=== PATIENT | male | born 1950 | race Caucasian/White ===

== ENCOUNTER 2023-09-15 15:13 | Outpatient (RCR) | payer MEDICARE, OTHER, SELFPAY | END 2023-09-15 23:59 | disposition home or self-care (01) | LOC: RPT 15:13 | PROVIDERS: ATTENDING PHYSICIAN Physical Medicine & Rehabilitation; FAMILY PHYSICIAN Family Medicine | DX: I69.318 Other symptoms and signs involving cognitive functions following cerebral infarction (principal); R41.4 Neurologic neglect syndrome; F90.9 Attention-deficit hyperactivity disorder, unspecified type; I69.354 Hemiplegia and hemiparesis following cerebral infarction affecting left non-dominant side; I69.398 Other sequelae of cerebral infarction; R26.89 Other abnormalities of gait and mobility; I69.328 Other speech and language deficits following cerebral infarction | CPT/HCPCS: 97110; 97112; 97129; 97130; 97530; 97535 ==

== ENCOUNTER → 2023-10-01 12:16 | Outpatient (REF) | payer MEDICARE, OTHER, SELFPAY | LOC: RAD 12:16 | PROVIDERS: ATTENDING PHYSICIAN Surgery Vascular Surgery; FAMILY PHYSICIAN Family Medicine | DX: I65.23 Occlusion and stenosis of bilateral carotid arteries (principal); I71.43 Infrarenal abdominal aortic aneurysm, without rupture | CPT/HCPCS: 74174; 93880; Q9967 ==

== ENCOUNTER → 2023-10-06 09:52 | Outpatient (REF) | payer MEDICARE, OTHER, SELFPAY ==
[2023-10-06 11:08] LABS: % Basophils 0.7 % (0-2); % Eosinophils 3.7 % (0-6); % Immature Granulocytes 0.2 % (0-0.5); % Monocytes 9.6 % (1.7-9.3); % Neutrophils 55.8 % (42.2-75.2); Absolute Eosinophils 0.2 10^3/uL (0-0.7); Absolute Lymphocytes 1.7 10^3/uL (1.2-3.4); Absolute Monocytes 0.6 10^3/uL (0.1-0.6); Absolute Neutrophils 3.2 10^3/uL (1.4-6.5); Hematocrit 46.2 % (39.0-52.0); Hemoglobin 15.3 g/dL (13.0-18.0); Mean Corp Hgb Conc. 33.1 g/dL (33.0-37.0); Mean Corpuscular Hgb 31.5 pg (27.0-31.0); Mean Corpuscular Volume 95.1 fL (80.0-94.0); Mean Platelet Volume 10.4 fL (7.4-10.4); Nucleated Red Blood Cells % 0 % (-); Platelet Count 163 10^3/uL (130-400); Red Blood Cell Count 4.86 10^6/uL (4.70-6.10); White Blood Cell Count 5.7 10^3/uL (4.8-10.8)
[2023-10-06 11:27] LABS: ALT (SGPT) 32 U/L (0-50); AST (SGOT) 30 U/L (17-59); Albumin 3.9 g/dl (3.5-5.0); Alkaline Phosphatase 69 U/L (38-126); Blood Urea Nitrogen 12 mg/dl (9-20); Calcium 8.9 mg/dl (8.4-10.2); Carbon Dioxide 30 mmol/L (22-30); Chloride 104 mmol/L (98-107); Glucose 93 mg/dl (70-99); HDL Cholesterol 29 mg/dl; LDL Cholesterol, Calculated 41 mg/dl; Potassium 4.6 mmol/L (3.5-5.1); Sodium 139 mmol/L (135-145); Total Bilirubin 0.7 mg/dl (0.2-1.3); Total Cholesterol 81 mg/dl (50-199); Total Protein 6.4 g/dl (6.3-8.2); Triglyceride 59 mg/dl (10-149); Very Low Density Lipoprotein 11 mg/dl (0-30); eGFR > 60.00
[2023-10-06 12:51] LABS: Glycohemoglobin (HgbA1c) 6.2 % (4.0-5.6)
== END ==
LOC: REG 09:52
PROVIDERS: ATTENDING PHYSICIAN Family Medicine
DX: R73.01 Impaired fasting glucose (principal); E78.5 Hyperlipidemia, unspecified; I10 Essential (primary) hypertension
CPT/HCPCS: 36415; 80053; 80061; 83036; 85025

== ENCOUNTER 2023-10-15 08:23 | Outpatient (RCR) | payer MEDICARE, OTHER, SELFPAY | END 2023-10-16 10:22 | disposition home or self-care (01) | LOC: RPT 08:23 | PROVIDERS: ATTENDING PHYSICIAN Physical Medicine & Rehabilitation; FAMILY PHYSICIAN Family Medicine | DX: I69.318 Other symptoms and signs involving cognitive functions following cerebral infarction (principal); I69.328 Other speech and language deficits following cerebral infarction; Z73.6 Limitation of activities due to disability; I69.354 Hemiplegia and hemiparesis following cerebral infarction affecting left non-dominant side; I69.398 Other sequelae of cerebral infarction; R26.89 Other abnormalities of gait and mobility; R41.4 Neurologic neglect syndrome | CPT/HCPCS: 97110; 97129; 97130; 97530; 97535 ==

== ENCOUNTER 2023-11-07 07:14 | Inpatient (IN) | payer MEDICARE, OTHER, SELFPAY ==
[2023-11-03 09:22] VITALS: BMI 29.4
[2023-11-03 10:10] LABS: % Basophils 0.7 % (0-2); % Eosinophils 2.8 % (0-6); % Lymphocytes 25.7 % (20.5-51.1); % Monocytes 9.1 % (1.7-9.3); % Neutrophils 60.7 % (42.2-75.2); Absolute Basophils 0.1 10^3/uL (0-0.2); Absolute Eosinophils 0.2 10^3/uL (0-0.7); Absolute Immature Granulocytes 0.1 10^3/uL (0-0.05); Absolute Lymphocytes 1.7 10^3/uL (1.2-3.4); Absolute Monocytes 0.6 10^3/uL (0.1-0.6); Absolute Neutrophils 4.1 10^3/uL (1.4-6.5); Hemoglobin 15.6 g/dL (13.0-18.0); Mean Corp Hgb Conc. 33.9 g/dL (33.0-37.0); Mean Corpuscular Hgb 31.9 pg (27.0-31.0); Mean Corpuscular Volume 94.1 fL (80.0-94.0); Mean Platelet Volume 10.9 fL (7.4-10.4); Nucleated Red Blood Cells % 0 % (-); Platelet Count 141 10^3/uL (130-400); Red Blood Cell Count 4.89 10^6/uL (4.70-6.10); Red Cell Dist. Width 13.3 % (11.5-14.5); White Blood Cell Count 6.7 10^3/uL (4.8-10.8)
[2023-11-03 10:16] LABS: INR 1.21; PT 15.1 Sec (11.4-14.6)
[2023-11-03 10:17] LABS: APTT 32.7 Sec (23.4-35.0)
[2023-11-03 10:50] LABS: Blood Urea Nitrogen 13 mg/dl (9-20); Calcium 8.8 mg/dl (8.4-10.2); Carbon Dioxide 28 mmol/L (22-30); Chloride 106 mmol/L (98-107); Estimated Creatinine Clearance 60 ml/min; Glucose 101 mg/dl (70-99); Potassium 4.2 mmol/L (3.5-5.1); Sodium 141 mmol/L (135-145); eGFR > 60.00
[2023-11-07] VITALS (11 sets, daily range): BP systolic 107–158; BP diastolic 61–87; PULSE 61; BMI 29.1
[2023-11-07] MEDS: BACTROBAN NASAL 1 GRAM NASAL (07:49)
[2023-11-07] MEDS: PERIDEX 0.12% ORAL RINSE 15 ML PO (07:49)
[2023-11-07] MEDS: NSS 500 IV (07:49)
--- NOTE | 2023-11-07 08:29 | W.SUR.PREOP ---
Pre-Operative Surgical Note
-
I have examined this patient prior to the performance of the scheduled procedure.
The patient's condition is unchanged from the time of the current History and
Physical and the patient is able to undergo the scheduled procedure.
[2023-11-07 09:35] LABS: ACT-LR - POC 360 Seconds (116-155)
--- NOTE | 2023-11-07 10:55 | W.IMMPOSTOP ---
Surgical Immed Post Op Note
-
Primary Surgeon: Umer Peralta III, MD
Assisting Surgeon: Geremias Sen MD
Pre-op Diagnosis: Inferarenal AAA
Post-op Diagnosis: Infrarenal AAA s/p EVAR (26mm [place])
Procedure Performed: EVAR (26mm [place])
Anesthesia Type: General
Specimen / Cultures: NA
Estimated Blood Loss: 75cc
Complications: NA
Operative Findings:
Bilateral groin access was obtained. 2 pre-close devices were inserted bilaterally after dilating with a 5French sheath. An 11Fr sheath was then advanced on the left. The right side was serially dilated to accomodate a 13Fr sheath. The 26mm device
was advanced under direct fluoroscopic guidance infrarenally. After confirmational aortogram, the device crown was deployed without issue. Polymer sealant was then deployed, and the entire device (includingl iliac limbs) were each ballooned to
nominal pressure. Post-deployment aortogram demonstrated excellent positioning with no evidence of endoleak. An additional pro-glide pre-close was inserted into the left groin. The femoral access sites were packed with gel foam and light pressure
held on right side. Distal extremity pulses were palpable bilaterally, unchanged from preoperative condition.
[2023-11-07 11:07] LABS: Glucose - Point of Care 109 mg/dl (70-99)
--- NOTE | 2023-11-07 11:14 | CON.INTV ---
Consultation
Consultation Request
Date/Time Consultation Requested: 11/07/2023-11:30 AM
Date/Time Consultation Performed: 11/07/2023-12 noon
Requesting Provider: Dr. Peralta
Performing Provider: Dr. Duarte
Reason for Consultation: Postoperative critical care management
Medical History
-
Chief Complaint: Infrarenal AAA
History of Present Illness:
73-year-old male with multiple medical problems including hypertension, hyperlipidemia, CAD/stent, obesity, sleep apnea on CPAP who was noted to have significant infrarenal AAA and underwent EVAR-licensed massage practitioner consulted for postoperative critical care
management 11/07/2023.
Past Medical History
Past Medical History: None (Hypertension. Hyperlipidemia. PAF. GERD. CAD/stent. History of pericarditis. BPH. Umbilical hernia. Glaucoma. Shingles. Colon polyp. CATARINO on CPAP. Obesity. Liver cyst. Pancreatic lipomatosis. Diverticulosis.
History CVA. Carotid stenosis. Cervical disc disease.)
Past Surgical History: None (Tonsillectomy. Umbilical hernia repair.)
Social History
Tobacco: Former Smoker
Alcohol: None
Drug: None
Living: With Family
Occupational Exposures: No known asbestos exposure
Environmental Exposures: No known tuberculosis exposure
Family History
Family History: Other (Glaucoma. Alzheimer's. Hyperlipidemia. Prostate cancer.)
Allergies / Home Medications
Allergies
Allergy/AdvReac Type Severity Reaction Status Date / Time
No Known Allergies Allergy Verified 10/29/23 14:39
Home Medications
Medication Instructions Recorded Confirmed Last Taken Type
nitroglycerin 0.4 mg sublingual 0.4 mg sublingual [id number] PRN 03/02/19 10/29/23 Unknown Rx
tablet chest pain #25 tabs
atorvastatin 40 mg tablet 40 mg PO QPM High Cholesterol 06/01/21 11/07/23 11/06/23 19:00 History
ezetimibe 10 mg tablet 10 mg PO QPM High Cholesterol 06/01/21 11/07/23 11/06/23 19:00 History
losartan 25 mg tablet 25 mg PO DAILY Blood Pressure 06/01/21 11/07/23 11/06/23 08:00 History
pantoprazole 40 mg tablet,delayed 40 mg PO DAILY Gastrointestinal 06/04/23 11/07/23 11/06/23 08:00 History
release Issue
melatonin 10 mg tablet 10 mg PO HS PRN sleep 06/07/23 11/07/23 Unknown History
metoprolol succinate 25 mg 25 mg PO DAILY 30 days #30 tabs 06/09/23 11/07/23 11/07/23 05:00 Rx
tablet,extended release 24 hr
acetaminophen 325 mg tablet 650 mg PO Q6HPRN PRN MILD PAIN 06/19/23 11/07/23 Unknown Rx
#100 tabs
apixaban 5 mg tablet (Eliquis) 5 mg PO BID #180 tabs 06/19/23 11/07/23 11/04/23 19:00 Rx
cyanocobalamin (vitamin B-12) 1,000 mcg PO DAILY #90 tabs 06/19/23 11/07/23 11/06/23 08:00 Rx
1,000 mcg tablet
empagliflozin 10 mg tablet 10 mg PO QPM Heart Failure 90 days 06/19/23 11/07/23 11/04/23 19:00 Rx
(Jardiance) #90 tabs
docusate sodium 100 mg capsule 100 mg PO BID PRN CONSTIPATION 10/29/23 10/29/23 Unknown History
enoxaparin 100 mg/mL subcutaneous 90 mg SC DAILY 11/07/23 11/07/23 11/06/23 20:45 History
syringe (Lovenox)
Review of Systems
-
Unable to Obtain full review of systems at this time due to: Other (Per HPI)
Vitals / Labs / Diagnostic Testing
Vital Signs
Temp Pulse Resp BP Pulse Ox
97.9 F 55 18 155/85 98
11/07/23 07:20 11/07/23 07:20 11/07/23 07:20 11/07/23 07:20 11/07/23 07:20
Microbiology
11/03/23 09:35 Nose MRSA Screen - Final
No Methicillin Resistant Staphylococcus aureus isolated.
Diagnostic Testing:
Physical Exam
-
Exam:
Well-nourished and well-developed in no apparent distress
HEENT-atraumatic, normocephalic
Neck-supple, no JVD, no bruit
Heart-regular rate and rhythm-no murmurs, rubs or gallops
Chest-clear to auscultation, no wheezes, crackles
Back-no tenderness
Abdomen-soft, nontender, nondistended, no hepatosplenomegaly
Extremities-no cyanosis, clubbing, edema and good peripheral pulses
Integument-intact, no rashes, lesions or ecchymosis
Neurology-alert and oriented, nonfocal motor and sensory exam
Assessment
-
73-year-old male with multiple medical problems including hypertension, hyperlipidemia, CAD/stent, obesity, sleep apnea on CPAP who was noted to have significant infrarenal AAA and underwent EVAR-licensed massage practitioner consulted for postoperative critical care
management 11/07/2023.
Infrarenal AAA
Status post EVAR 26 mm alto-Dr. Peralta-11/07/2023
Hypertensive urgency
Left eye 'burning'
Conditions present prior to admission:
Hypertension.
Hyperlipidemia.
PAF.
GERD.
CAD/stent.
History of pericarditis.
BPH.
Umbilical hernia.
Glaucoma.
Shingles.
Colon polyp.
CATARINO on CPAP-AutoPap with average pressure 11-12 cm
Obesity.
Liver cyst.
Pancreatic lipomatosis.
Diverticulosis.
History CVA.
Carotid stenosis.
Cervical disc disease.
Tonsillectomy. Umbilical hernia repair.
Plan
Postoperative surgical intensive care unit monitoring
Supplemental oxygen as needed
Incentive spirometry
Aspiration precautions
CPAP at night
Neuro and vascular checks per protocol
Vascular surgery following-correspondence and operative notes reviewed
Monitor blood pressure closely-goal MAP 70-90
Cardene drip continues
Monitor left eye burning closely
Consider ophthalmology evaluation if persists
DVT prophylaxis
Early nutrition
Early mobilization
Outpatient sleep disorders [id number] saw Rosalba Degroot NP/Dr. Roselia Oconnell-06/25/2023
Critical care statement: A total of 50 minutes of critical care time was provided for this patient today. This includes management of unstable vital signs, evaluation of the patient at bedside, reviewing the patient's pertinent medical records
including radiographs, Cardene drip management, microbiology, laboratory evaluations, and discussion with primary team, consultants, pharmacy, nutrition, physical therapy, case management, charge nurse, critical care nursing, and respiratory
therapy.
Diagnostic data:
Chest x-ray 11/03/2023-NAD
Echocardiogram 06/05/2023-EF 60%, no significant valvular disease
HST 08/06/2020-GIRISH-21.8, desaturation tiffany 82%
Data Reviewed
-
EKG: Report reviewed by me
Radiology: Report reviewed by me
CT Scan: Report reviewed by me
Medical Tests (Nuc Med, Echo etc): Report reviewed by me
Labs: Labs reviewed by me
Old Records: Reviewed
Critical Care Time (in minutes): 50
[2023-11-07 11:18] LABS: Hematocrit 40.7 % (39.0-52.0); Hemoglobin 13.9 g/dL (13.0-18.0); Mean Corp Hgb Conc. 34.2 g/dL (33.0-37.0); Mean Corpuscular Hgb 31.7 pg (27.0-31.0); Mean Corpuscular Volume 92.9 fL (80.0-94.0); Mean Platelet Volume 10.4 fL (7.4-10.4); Platelet Count 135 10^3/uL (130-400); Red Blood Cell Count 4.38 10^6/uL (4.70-6.10); Red Cell Dist. Width 13.1 % (11.5-14.5); White Blood Cell Count 8.3 10^3/uL (4.8-10.8)
[2023-11-07] MEDS: NSS 1000 IV ×2 (11:27→19:31)
[2023-11-07] MEDS: CARDENE 200 IV ×2 (11:28→16:21)
[2023-11-07 11:29] LABS: Blood Urea Nitrogen 15 mg/dl (9-20); Calcium 8.5 mg/dl (8.4-10.2); Carbon Dioxide 28 mmol/L (22-30); Chloride 104 mmol/L (98-107); Estimated Creatinine Clearance 73 ml/min; Glucose 123 mg/dl (70-99); Potassium 4.5 mmol/L (3.5-5.1); Sodium 136 mmol/L (135-145); eGFR > 60.00
[2023-11-07 11:36] LABS: APTT 36.6 Sec (23.4-35.0); INR 1.18; PT 14.8 Sec (11.4-14.6)
--- NOTE | 2023-11-07 12:00 | PTCARENOTE ---
pt arrived from the PACU via bed with monitor and Oxygen mask w/8 liters oxygen. He is awake and alert, c/o severe left eye pain and burning with excessive tearing. Eye is bright red. He is also screaming in pain, restless in the bed, and unable to
keep his left eye open. Irrigated his eye with NSS. Coco BUENO notified. Right radial arterial line transduced, calibrated and monitored, all ports patent and secured, correlates to cuff pressure. Doppler DP/PT signals. Palpable radial
pulses. Feet warm, JACOB. He required multiple reminders to keep his legs down and to hold his groins when coughing. He has a frequent moist non-productive cough. He stated he was prescribed a nasal spray that he only was using on occasion. Lungs
diminished in the bases. 8 liters oxygen via simple mask, transitioned to mid flow nasal cannula 8 liters. No SOB. Bilateral groins PROMOTIONS INTERN & approximated with surgical glue present. Small area of light blue ecchymosis on the left groin. He was informed
that he is to lay flat until 1350. +BSx4. He reports his last BM was 2 days ago. I encouraged him to take a stool softener at home due to anesthesia and analgesics he received today. Oriented to the room and the use of the call wolf. Indwelling
temperature sensing Peralta catheter draining clear yellow urine. He is C/O discomfort from the catheter. Coco BUENO was TT'd about his left eye and discomfort from the catheter. Safe environment maintained.
[2023-11-07] MEDS: MORPHINE SULFATE 2 MG IV (13:02)
[2023-11-07] MEDS: COLACE 100 MG PO ×2 (13:02→22:34)
[2023-11-07] MEDS: LOW STRENGTH ASPIRIN 81 MG PO (13:02)
--- NOTE | 2023-11-07 14:34 | PTCARENOTE ---
Pt and his Theresa Julien were informed that anesthesia will be ordering eye drops for his eye.
[2023-11-07] MEDS: TYLENOL 650 MG PO (14:37)
[2023-11-07] MEDS: HEPARIN 5000 UNITS SC ×2 (16:21→23:54)
[2023-11-07] MEDS: ERYTHROMYCIN 0.5% OPHTHALMIC OINTMENT 1 APPLIC OPHTH ×2 (16:21→21:24)
--- NOTE | 2023-11-07 16:40 | PTCARENOTE ---
Pt bladder scanned, to assure him that the Indwelling Peralta catheter was draining his bladder. He was scanned for 0/zero. Stat lock placed on pt. Left groin appears to be slightly more swollen than the right.
--- NOTE | 2023-11-07 16:45 | PTCARENOTE ---
Coco BUENO notified that his left groin is slightly larger than the right. It is soft with good doppler signals.
[2023-11-07] MEDS: LIPITOR 40 MG PO (17:09)
[2023-11-07] MEDS: JARDIANCE 10 MG PO (17:09)
[2023-11-07] MEDS: ZETIA 10 MG PO (17:09)
--- NOTE | 2023-11-07 17:55 | OR.RPT ---
Operative Report
Operative Report
Date of Operation: 11/07/2023
Pre Op Diagnosis: Infrarenal abdominal aortic aneurysm
Post Op Diagnosis: Infrarenal abdominal aortic aneurysm
Procedure:
1.) Endovascular aortic aneurysm repair using Endologix [place] device:
26mm [place]lma main body (right femoral insertion)
14 mm x 140 mm left iliac limb
22 mm x 140 mm right iliac limb
2.) Insert wire/catheter into aorta from bilateral femoral artery access
3.) Ultrasound guided percutaneous access to the bilateral common femoral arteries
4.) ProGlide closures of the bilateral femoral artery access
Surgeon: Umer Peralta III, MD
Console Assembler: Geremias Sen MD PGY-1
Fluoroscopy:
26.5 minutes
828 mGy
256.13 DAP
Anesthesia: General
Complications: None
Estimated Blood Loss: 75 cc
History and Indications for Procedure: 73-year-old male with abdominal aortic aneurysm
Procedure in Detail: Fred Douglass was correctly identified and placed supine on the operating table. After adequate induction of anesthesia his abdomen, pelvis, bilateral groins and thighs were prepped and draped in the usual sterile fashion. He
received preoperative antibiotics. A timeout procedure was performed with the nursing and anesthesia staff confirming the patient's identity as well as the nature and laterality of the procedure.
Using ultrasound guidance bilateral common femoral artery access was obtained using a standard micropuncture technique. A standard preclose technique was performed bilaterally with 2 offset Pro-glide closure devices at 10 o'clock and 2 o'clock. An
11 [place] sheath was placed on the left. An 8 [place] sheath was placed on the right. Systemic heparin was administered
On the right a Bentson wire and KMP catheter were advanced into the proximal descending thoracic aorta. The wire was exchanged out for a Lunderquist wire. On the left a Bentson wire was navigated into the abdominal aorta followed by a pigtail
catheter which was then hooked up to the power injector.
The 26 mm Thelma aortic main body delivery system was loaded onto the Lunderquist wire in the right femoral access and advanced into the approximate location. An aortogram was performed. The renal arteries were widely patent and their location
clearly marked on the screen.
The radiopaque markers on the Thelma main body were positioned appropriately below the lowest renal artery. The outer sheath of the delivery system was retracted until the sheath retraction knob met the handle. The first segment was deployed by
turning the first yellow stent release knob and pulling the wire from the handle. I then remove the white cap rom the balloon injection port and inflated the balloon with 5 cc of 4:1 saline:contrast to open the mid crown. The balloon was then
completely deflated. The radiopaque markers were precisely positioned in the desired location. The pigtail catheter was pulled back into the aneurysm sac. I then deployed the remainder of the proximal stent by turning the second yellow stent
release knob and pulling the wire from the handle. I then removed the green fill cap from the polymer injection port and attached the fill syringe to it to begin polymer filling of the graft. A timer was started.
A Glidewire was inserted into the pigtail catheter. Using a Glidewire and KMP catheter we selected the contralateral limb. The KMP catheter was advanced into the main body and spun to confirm proper position within the aortic graft. The wire and
catheter were advanced into the proximal descending thoracic aorta. The wire was exchanged out for an Amplatz wire. A pigtail catheter was then inserted over the Amplatz wire and the markers aligned with the radiopaque polymer bands on the limb.
A retrograde injection was performed from the left iliac sheath to visualize the location of the iliac bifurcation. The contralateral limb length was measured. The 14 mm x 140 mm O[place] limb was loaded on the Amplatz wire and brought into the
desired location. I confirmed that the proximal and distal iliac limb markers were at the appropriate locations and that the iliac limb was in the contralateral lumen of the main body stent graft leg. I then retracted the sheath to deployed the
iliac limb in the desired location. The delivery system was removed over the wire.
The proximal sealing ring was ballooned with the integrated balloon. The third released knob was turned and steadily pulled from the handle. The delivery system was removed from the sheath. A pigtail catheter was inserted on the right and the
markers lined up with the polymer limb rings. A retrograde right sheath arteriogram was performed and the appropriate limb length was measured. The sheath was removed over the Lunderquist wire. A 22 mm x 140 mm Ovation limb was inserted through
the right femoral access and positioned appropriately. The proximal and distal iliac limb markers were confirmed in the desired location and the limb was deployed by retracting the sheath. The delivery system was then removed over the wire.
12 mm x 40 mm angioplasty balloons were used to balloon the iliac limbs bilaterally including all areas of overlap and the distal seal zones.
A completion arteriogram was performed demonstrating an excellent technical result. There was brisk flow through the aortic stent graft. The iliac limbs were widely patent. The renal arteries were widely patent bilaterally. The iliac
bifurcations were preserved bilaterally. There was no proximal or distal type I endoleak identified. There was a late faint type II endoleak identified from the VALERI.
Satisfied with this result we then concluded the procedure. The femoral sheaths were removed over the wires bilaterally. The Pro-glide knots were secured bilaterally. Hemostasis was achieved bilaterally. Protamine was administered. Sterile
dressings were applied.
The patient tolerated the procedure well was taken to the recovery room in good condition.
Attestation: I was present and responsible for the entire procedure
Signed:
Umer Peralta III, MD
[facility]
[phone] (iomw)
--- NOTE | 2023-11-07 20:17 | PTCARENOTE ---
Received pt resting in bed AAOx3. Complaints of L eye pain but stated it is improved from earlier. JACOB. Neuro check WNL. SR on tele, HR 60s. R radial A line transduced, zeroed, flushed. BP 110s-120s/50s. Cardene gtt titrated to off to maintain MAP
70-90. Will monitor. Weakly palpable DP + PT pulses. Legs warm. Afebrile. On RA, lungs dim at bases. Occ. cough noted. + bowel sounds. No BM today. Peralta draining yellow urine. B/L groin sites with glue, SANNA. Nontender, soft, no edema noted.
Neurovasc checks Q1 ongoing. NS @ 80ml/hr. Call wolf in reach
[2023-11-07] MEDS: MELATONIN 10 MG PO (22:34)
[2023-11-08] VITALS (7 sets, daily range): BP systolic 112–134; BP diastolic 55–84; BMI 30.3
--- NOTE | 2023-11-08 00:43 | PTCARENOTE ---
Addendum entered by Charmaine Pereira RN 11/08/23 02:35:
No improvement in BP s/p 500ml bolus. Jay gtt started at 0140.
Original Note:
BP via A line 100s-110s/40s (MAPs mid 60s), BP cuff with MAP ~70. Pt. is sleeping. Goal MAP 70-90 per orders. Discussed with PHOTOGRAPHIC PROCESS ATTENDANT. Will give 500ml bolus before starting pressors. Will monitor. No changes in assessment otherwise. Pt. on CPAP.
[2023-11-08] MEDS: NSS 500 IV (00:45)
[2023-11-08] MEDS: NEO-SYNEPHRINE 250 IV (01:40)
--- NOTE | 2023-11-08 03:15 | PTCARENOTE ---
Addendum entered by Charmaine Pereira RN 11/08/23 03:54:
RELIGIOUS RITUAL SLAUGHTERER aware and examined pt- continue to monitor.
Original Note:
Pt. L groin site with more ecchymosis. Remains soft + nontender. B/L PT pulses normal, DPs weak.
[2023-11-08 03:20] LABS: Hematocrit 38.7 % (39.0-52.0); Hemoglobin 12.9 g/dL (13.0-18.0); Mean Corp Hgb Conc. 33.3 g/dL (33.0-37.0); Mean Corpuscular Hgb 31.4 pg (27.0-31.0); Mean Corpuscular Volume 94.2 fL (80.0-94.0); Mean Platelet Volume 10.6 fL (7.4-10.4); Platelet Count 152 10^3/uL (130-400); Red Blood Cell Count 4.11 10^6/uL (4.70-6.10); Red Cell Dist. Width 13.1 % (11.5-14.5); White Blood Cell Count 14.1 10^3/uL (4.8-10.8)
[2023-11-08 03:31] LABS: INR 1.26; PT 15.6 Sec (11.4-14.6)
[2023-11-08 03:32] LABS: APTT 33.1 Sec (23.4-35.0)
[2023-11-08] MEDS: ANESTHETIC LOZENGE 1 LOZENGE PO (03:44)
[2023-11-08 03:45] LABS: Blood Urea Nitrogen 20 mg/dl (9-20); Calcium 8.3 mg/dl (8.4-10.2); Carbon Dioxide 22 mmol/L (22-30); Chloride 109 mmol/L (98-107); Estimated Creatinine Clearance 73 ml/min; Glucose 123 mg/dl (70-99); Potassium 4.4 mmol/L (3.5-5.1); Sodium 135 mmol/L (135-145); eGFR > 60.00
--- NOTE | 2023-11-08 07:06 | W.PN.INTV ---
Today's Communication / Plan
Recommendations
deline
Discontinue Peralta
Increase activity
Resume Eliquis
Stable for transfer out of ICU-call pulmonary if respiratory issues arise
Assessment
-
73-year-old male with multiple medical problems including hypertension, hyperlipidemia, CAD/stent, obesity, sleep apnea on CPAP who was noted to have significant infrarenal AAA and underwent EVAR-it applications manager consulted for postoperative critical care
management 11/07/2023.
Infrarenal AAA
Status post EVAR 26 mm alto-Dr. Peralta-11/07/2023
Hypertensive urgency
Left eye 'burning'
Conditions present prior to admission:
Hypertension.
Hyperlipidemia.
PAF.
GERD.
CAD/stent.
History of pericarditis.
BPH.
Umbilical hernia.
Glaucoma.
Shingles.
Colon polyp.
CATARINO on CPAP-AutoPap with average pressure 11-12 cm
Obesity.
Liver cyst.
Pancreatic lipomatosis.
Diverticulosis.
History CVA.
Carotid stenosis.
Cervical disc disease.
Tonsillectomy. Umbilical hernia repair.
Plan
Hemodynamically and neurovascularly intact
Wean supplemental oxygen
Incentive spirometry encourage
Aspiration precautions
Monitor hemoglobin
Transfuse if needed
Discontinue arterial line and Peralta catheter
Discontinue intravenous fluids
Monitor blood sugars
Insulin supplementation if needed
Neuro and vascular checks per protocol also continue
Vascular surgery closely
DVT prophylaxis recommended-Eliquis will be restarted today-also on aspirin
Nutrition
Increase activity/physical therapy
Outpatient sleep disorders [id number] saw Rosalba Degroot NP/Dr. Roselia Oconnell-06/25/2023
Patient can be transferred out of ICU-call pulmonary if respiratory issues arise
Reviewed the patient's pertinent medical records including radiographs, microbiology, laboratory evaluations, and discussion with primary team, consultants, pharmacy, nutrition, physical therapy, case management, charge nurse, critical care
nursing, and respiratory therapy.
Diagnostic data:
Chest x-ray 11/03/2023-NAD
Echocardiogram 06/05/2023-EF 60%, no significant valvular disease
HST 08/06/2020-GIRISH-21.8, desaturation tiffany 82%
Subjective Dataa
Subjective Data
Date of Service:
Date of Service: November 08, 2023
Chief Complaint: Medical Laboratory Technicians Follow Up and Pulmonary Follow Up
Subjective:
Overall feels well, no shortness of breath, chest pain or abdominal pain, tolerated CPAP for several hours
Review of Systems
General: Other (Per HPI)
Objective Data
Data Reviewed
Vital Signs / I&O / Oxygen:
Vital Signs
Temp Pulse Resp BP Pulse Ox
98.2 F 66 14 128/78 92
11/08/23 03:16 11/08/23 05:30 11/08/23 05:30 11/08/23 06:00 11/08/23 05:30
Intake and Output
11/07/23 11/08/23 11/09/23
06:59 06:59 06:59
Intake Total 2621.5 / 2621.5
Output Total 1992
Balance 628.5 / 628.5
SaO2 92
Nasal Cannula flow liters per 10
minute
Physical Exam
General: Respiratory Distress and Comfortable
HEENT: Normocephalic, Anicteric and Moist Mucous Membranes
Cardiovascular: Regular Rhythm
Respiratory: Wheeze, Crackles (n), Rhonchi (n), Non-Labored Respirations, Accessory Resp Muscle Use (n) and Stridor (n)
GI: Soft, Non Distended and Non Tender
Neurology: Awake, Alert and No Motor Deficits
Skin: Warm, Good Color, Cyanosis (n), Jaundice (n) and Rash (n)
Labs/Micro/Reports
Lab Data
11/08/23 03:08
11/08/23 03:08
Laboratory Results
11/07/23 11/08/23
10:55 03:08
PT 14.8 H 15.6 H
INR 1.18 1.26
APTT 36.6 H 33.1
[2023-11-08] MEDS: PROTONIX 40 MG PO (08:20)
[2023-11-08] MEDS: LOW STRENGTH ASPIRIN 81 MG PO (08:20)
[2023-11-08] MEDS: VITAMIN B-12 1000 MCG PO (08:20)
[2023-11-08] MEDS: TOPROL XL 25 MG PO (08:21)
[2023-11-08] MEDS: HEPARIN 5000 UNITS SC (08:21)
[2023-11-08] MEDS: COZAAR 25 MG PO (08:21)
[2023-11-08] MEDS: ERYTHROMYCIN 0.5% OPHTHALMIC OINTMENT 1 APPLIC OPHTH (08:21)
--- NOTE | 2023-11-08 08:30 | W.PN.VS ---
Today's Communication / Plan
-
Patient seen and evaluated at bedside with Dr. Lorelei Lux, below plan reviewed with attending
Assessment/Plan
-
Assessment: 73-year-old male POD #1 Endovascular aortic aneurysm repair using Endologix [place] device
Plan:
Discontinue arterial line
Discontinue Peralta catheter
Discontinue IV fluids, saline lock peripheral IV
Can get out of bed to chair with progression to ambulation as tolerated
Continue aspirin, will restart Eliquis today
If patient continues to tolerate diet, ambulate halls without difficulty, and voids post Peralta removal likely will discharge later this afternoon
Subjective Data
-
Date of Service: November 08, 2023
Patient seen and examined at bedside, reports vast to near resolution of left eye pain following procedure. Denies any vision changes. Patient offers no complaints. Reports eagerness for discharge to home when deemed stable.
Objective Data
-
Vital Signs
Temp Pulse Resp BP Pulse Ox
97.6 F 66 14 128/78 92
11/08/23 08:11 11/08/23 05:30 11/08/23 05:30 11/08/23 06:00 11/08/23 05:30
Intake and Output
11/07/23 11/08/23 11/09/23
06:59 06:59 06:59
Intake Total 2621.5 / 2621.5
Output Total 1992
Balance 628.5 / 628.5
Intake:
Oral fluids 840 / 840
IV fluids (Total) 1781.5 / 1781.5
Cardene 40mg/200ml 237.5 / 237.5
Jay
Nss 1,000 ml @ 80 mls/hr IV . 1520 / 1520
[id number] VINICIO Rx#:[id number]
Output:
Urine, Peralta 1992
Lab Results
11/08/23 03:08
11/08/23 03:08
Calcium 8.3 mg/dl (8.4-10.2) L 11/08/23 03:08
Physical Exam
-
AAOx3, NAD
No tachycardia
No dyspnea
ABD soft, nontender, nondistended
Bilateral groin sites CDI, no evidence of hematoma, small area of stable ecchymosis at left groin site, Exofin glue intact
Peralta draining clear yellow urine
Bilateral lower extremities warm, bilateral palpable PT pulse
[2023-11-08] MEDS: TYLENOL 650 MG PO (09:10)
--- NOTE | 2023-11-08 11:23 | PTCARENOTE ---
Rec'd pt at 0700. Pt AAOx3, sitting up in bed eating breakfast. C/o mild pain, requesting Tylenol, PRN dose given. Monitor SR. Lungs CTA. +BS, abd soft/nt. Peralta draining yellow urine. Bilat groin sites with surgical adhesive intact, bruising noted
around left groin site, area soft. +PT/DP pulses, feet pink and warm. A-line dc'd as per orders. ~1030-Peralta dc'd, pt assisted OOB to chair, gait slightly unsteady.
[2023-11-08] MEDS: ERYTHROMYCIN 0.5% OPHTHALMIC OINTMENT OPHTH (13:01)
--- NOTE | 2023-11-08 15:16 | PTCARENOTE ---
Pt ambulating in room throughout afternoon. Walked in hallway and used steps without difficulty. Voided in restroom. Discharge orders rec'd, instructions reviewed with pt and at bedside, questions answered. IV sites and monitor removed. Pt
discharged to home at approx 1510, belongings with pt
--- NOTE | 2023-11-20 15:54 | W.DS.TRANS ---
DC Summary - Cpa Tax
-
Discharge Instructions:
Discharge Diagnosis/Procedures EVAR for treatment of AAA
Diet As tolerated
Activity No strenuous activity
Driving Restrictions No driving for 1 week
Bathing Restrictions OK to Shower
Instructions:
Stand-Alone Forms: DC Instr - Vascular OR
Changes to Home Medications: Yes
Discharge Medications:
DC Medications w/original date entered in [employer]
nitroglycerin 0.4 mg sublingual tablet 0.4 mg sublingual [id number] PRN chest pain #25 tabs 03/02/19
atorvastatin 40 mg tablet 40 mg PO QPM High Cholesterol 06/01/21
ezetimibe 10 mg tablet 10 mg PO QPM High Cholesterol 06/01/21
losartan 25 mg tablet 25 mg PO DAILY Blood Pressure 06/01/21
pantoprazole 40 mg tablet,delayed release 40 mg PO DAILY Gastrointestinal Issue 06/04/23
melatonin 10 mg tablet 10 mg PO HS PRN sleep 06/07/23
metoprolol succinate 25 mg tablet,extended release 24 hr 25 mg PO DAILY 30 days #30 tabs 06/09/23
acetaminophen 325 mg tablet 650 mg (2 x 325 mg) PO Q6HPRN PRN MILD PAIN #100 tabs 06/19/23
cyanocobalamin (vitamin B-12) 1,000 mcg tablet 1,000 mcg PO DAILY #90 tabs 06/19/23
empagliflozin 10 mg tablet (Jardiance) 10 mg PO QPM Heart Failure 90 days #90 tabs 06/19/23
docusate sodium 100 mg capsule 100 mg PO BID PRN CONSTIPATION 10/29/23
apixaban 5 mg tablet (Eliquis) 5 mg PO BID Blood Clot Prevention/Tx 11/07/23
aspirin 81 mg chewable tablet (Children's Aspirin) 81 mg PO DAILY #90 tabs 11/08/23
Home Medication Changes
Added:
aspirin 81 mg chewable tablet (Children's Aspirin) 81 mg PO DAILY #90 tabs 11/08/23
Pending Results: No
--- NOTE | 2023-11-20 15:55 | W.DCSUMMARY ---
Discharge Summary
Discharge Data
Date of Admission: 11/07/23
Date of Discharge: 11/08/23
-
Pending Results: No
Hospital Course
Attending: Umer Peralta III, MD
Consultants: Pulmonary medicine
Allergies: NKDA
Procedure with date: Endovascular aortic aneurysm repair using Endologix alto device: 11/07/[address] Umer Peralta III
History of present illness: The patient is an 73-year-old male with multiple medical conditions including: GERD, atrial fibrillation, hyperlipidemia, coronary artery disease, pericarditis, BPH, hypertension, glaucoma, obstructive sleep apnea,
impaired fasting glucose, CVA, abdominal aortic aneurysm, carotid atherosclerosis. Patient presented on 11/07/2023 for scheduled procedure with Dr. Peralta. Patient presented at baseline health with no reports of recent illness or trauma.
Hospital Course: Briefly, the patient underwent scheduled endovascular aortic aneurysm repair without complications, and recovered in PACU. Following recovery phase one and two patient was transferred to intensive care unit per protocol for
continued hemodynamic monitoring. Computer Builder consulted to aid in medical management from a critical care perspective. POD #1 (11/08/2023) Patient tolerating PO diet. Surgical bilateral groin sites clean, dry, and intact. No evidence of hematoma.
Urine output adequate. Arterial line and IV fluids discontinued. Patient able to ambulate without difficulty or incident. Patient stable for discharge to home.
Prescriptions and follow up appointment are included in the DC summary frame maker note. All instructions were given to the patient in both written and verbal form and the patient expressed understanding.
Discharge Plan
-
Patient Disposition: Home (Routine Discharge)
Discharge Diagnosis/Procedures: EVAR for treatment of AAA
Condition: Good
Diet: As tolerated
Activity: No strenuous activity
Driving Restrictions: No driving for 1 week
Bathing Restrictions: OK to Shower
Stand Alone Forms: DC Instr - Vascular OR
Referrals:
Roselia Cárdenas, [Active] - (Or Rosalba Hernandez for CPAP compliance check)
Pavel Coy DO [Family Provider] -
Laura Garcia CRNP [Specified Professional Personl] - 11/20/23 8:15 am
Prescriptions:
New
aspirin [Children's Aspirin] 81 mg Tablet,Chewable
81 mg PO DAILY Qty: 90 0RF
Continued
nitroglycerin 0.4 MG tablet, sublingual
0.4 mg sublingual [id number] PRN (Reason: chest pain) Qty: 25 10RF
losartan 25 MG tablet
25 mg PO DAILY
ezetimibe 10 MG tablet
10 mg PO QPM
atorvastatin 40 MG tablet
40 mg PO QPM
pantoprazole 40 MG tablet,delayed release (DR/EC)
40 mg PO DAILY
melatonin 10 mg Tablet
10 mg PO HS PRN (Reason: sleep)
metoprolol succinate 25 mg Tablet Extended Release 24 Hr
25 mg PO DAILY 30 Days Qty: 30 0RF
docusate sodium 100 mg capsule
100 mg PO BID PRN (Reason: CONSTIPATION)
Eliquis 5 mg tablet
5 mg PO BID
acetaminophen 325 mg Tablet
650 mg PO Q6HPRN PRN (Reason: MILD PAIN) Qty: 100 0RF
cyanocobalamin (vitamin B-12) 1,000 mcg Tablet
1,000 mcg PO DAILY Qty: 90 0RF
Jardiance 10 mg tablet
10 mg PO QPM 90 Days Qty: 90 0RF
Discontinued
enoxaparin [Lovenox] 100 mg/mL Syringe
90 mg SC DAILY
Patient Comments:
given as bridge for stopping eliquis for procedure
Discharge Orders:
Discharge Patient (As Directed); Ordered 11/08/23
Ordered By: Lorelei Lux
Discharge Date and Time
Discharge Date/Time: 11/08/23 15:27
Print Language: BELARUSIAN
== END 2023-11-08 15:27 | disposition home or self-care (01) | DRG 269 ==
LOC: ICU 07:14
PROVIDERS: Nurse Practitioner Acute Care; ADMITTING PHYSICIAN Surgery Vascular Surgery; FAMILY PHYSICIAN Family Medicine; OTHER PHYSICIAN Internal Medicine Critical Care Medicine
PROC: 04V03DZ Restriction of Abdominal Aorta with Intraluminal Device, Percutaneous Approach (ICD-10-PCS; 2023-11-07)
DX: I71.43 Infrarenal abdominal aortic aneurysm, without rupture (principal); I11.0 Hypertensive heart disease with heart failure; I25.10 Atherosclerotic heart disease of native coronary artery without angina pectoris; G47.33 Obstructive sleep apnea (adult) (pediatric); G30.9 Alzheimer's disease, unspecified; F02.80 Dementia in other diseases classified elsewhere, unspecified severity, without behavioral disturbance, psychotic disturbance, mood disturbance, and anxiety; E78.5 Hyperlipidemia, unspecified; I16.0 Hypertensive urgency; I48.0 Paroxysmal atrial fibrillation; E66.9 Obesity, unspecified; Z68.30 Body mass index [BMI] 30.0-30.9, adult; I50.9 Heart failure, unspecified; Z79.01 Long term (current) use of anticoagulants
CPT/HCPCS: 34705; 36415; 71046; 76937; 80048; 82962; 85025; 85027; 85610; 85730; 86850; 86900; 86901; 87070; 93005; 94660; C1725; C1760; C1769; C1892; C1894

== ENCOUNTER → 2023-12-12 13:47 | Outpatient (REF) | payer MEDICARE, OTHER, SELFPAY | LOC: RAD 13:47 | PROVIDERS: ATTENDING PHYSICIAN Registered Nurse; FAMILY PHYSICIAN Family Medicine | DX: I71.43 Infrarenal abdominal aortic aneurysm, without rupture (principal) | CPT/HCPCS: 71275; 74174; Q9967 ==

== ENCOUNTER 2024-02-02 12:50 | Inpatient (IN) | payer MEDICARE, OTHER, SELFPAY ==
[2024-02-02] VITALS (9 sets, daily range): BP systolic 139–176; BP diastolic 67–105; BMI 29.3; BMI 28.7
[2024-02-02 09:40] LABS: Glucose - Point of Care 98 mg/dl (70-99)
[2024-02-02 09:49] LABS: % Basophils 0.7 % (0-2); % Eosinophils 3.8 % (0-6); % Immature Granulocytes 0.1 % (0-0.5); % Lymphocytes 31.4 % (20.5-51.1); Absolute Basophils 0.1 10^3/uL (0-0.2); Absolute Eosinophils 0.3 10^3/uL (0-0.7); Absolute Lymphocytes 2.1 10^3/uL (1.2-3.4); Absolute Monocytes 0.7 10^3/uL (0.1-0.6); Absolute Neutrophils 3.7 10^3/uL (1.4-6.5); Mean Corp Hgb Conc. 33.3 g/dL (33.0-37.0); Mean Corpuscular Hgb 30.6 pg (27.0-31.0); Mean Corpuscular Volume 91.9 fL (80.0-94.0); Mean Platelet Volume 10.5 fL (7.4-10.4); Nucleated Red Blood Cells % 0 % (-); Platelet Count 171 10^3/uL (130-400); Red Blood Cell Count 4.57 10^6/uL (4.70-6.10); Red Cell Dist. Width 13.5 % (11.5-14.5); White Blood Cell Count 6.8 10^3/uL (4.8-10.8)
[2024-02-02 09:57] LABS: INR 1.29; PT 15.9 Sec (11.4-14.6)
[2024-02-02 09:58] LABS: APTT 31.2 Sec (23.4-35.0)
[2024-02-02] MEDS: PLAVIX 300 MG PO (09:59)
[2024-02-02 10:01] LABS: Blood Urea Nitrogen 17 mg/dl (9-20); Calcium 9.4 mg/dl (8.4-10.2); Carbon Dioxide 26 mmol/L (22-30); Chloride 107 mmol/L (98-107); Estimated Creatinine Clearance 60 ml/min; Glucose 99 mg/dl (70-99); Potassium 4.5 mmol/L (3.5-5.1); Sodium 141 mmol/L (135-145); eGFR > 60.00
--- NOTE | 2024-02-02 10:17 | ED.CVA ---
History of Present Illness
General
Chief Complaint: CVA/TIA Symptoms
Source: patient and ambulance crew
Exam Limitations: none
Time Seen by Provider: 02/02/24 09:30
Onset of Stroke Symptoms
Onset of symptoms known: Yes
Date of onset of symptoms: 02/02/24
Time of onset of symptoms: 07:30
Travel History
Have you had any contact with someone who has COVID-19?: No
Do you have any symptoms of coronavirus? Fever > 100 degrees, chills, cough, shortness of breath, sore throat, loss of taste or smell, muscle aches, or headache?: No
History of Present Illness
History of Present Illness:
73-year-old male woke at 630 without issues. At 730 he noted facial droop and left hand weakness. Some slurred speech. History of CVA. Patient is on Eliquis. Faithful with medication. Took his dose this morning. History of CVA May
last year
Past History
Past History
ED Past Medical History: Arrthythmia, CVA, GERD and Hypercholesterolemia
ED Past Surgical History: Cardiac and Tonsilectomy
Social History
Tobacco: Non-smoker
Alcohol: None
Drug: None
Personal:
Living: with family
Review of Systems
Review of Systems
All Other Systems: Not applicable
Respiratory: Reports no symptoms
Cardiac: Reports no symptoms
Phy Exam
Physical Exam
Physical Exam:
GENERAL: Alert and oriented in no apparent distress
EYE: Orbits normal.
NECK: Supple
ENT: Pharynx without erythema
CARDIAC: Regular rate and rhythm without any obvious murmurs.
LUNGS: Clear breath sounds,normal
ABDOMEN: Soft, without focal tenderness or distention
NEUROLOGICAL: Alert and oriented , left facial droop. Slight left arm drift. Mild left-sided neglect. Mild slurred speech.
SKIN: Warm and dry, no rash or lesion, no discoloration, skin intact.
MUSCULOSKELETAL: No edema,no deformity.Good color
PSYCH: Normal and appropriate interaction.
Course
Orders/Labs/Results
Orders:
Orders
02/02/24 09:22
CT Head W/o Cont STROKE ALERT Urgent
Reason For Exam: stroke alert
02/02/24 09:26
CT Head/Neck Ang STROKE ALERT Urgent
Comment:
Reason For Exam: LUE weak, slurred speech, left facial
02/02/24 09:30
Cardiac Monitoring- Treatment ONCE
IV Insert/Care/Rem.- Treatment PRN
Pulse Ox/cont/shift [RESP] Stat
Quantity: 1
02/02/24 09:31
Electrocardiogram (*1) Stat
Reason for Study: Other
Other Reason for Exam: neuro symptoms
EKG- Treatment ONCE
02/02/24 09:38
Basic Metabolic Panel Urgent
Complete Blood Count/With Diff Urgent
PTT Urgent
Prothrombin Time Urgent
02/02/24 09:49
Clopidogrel Bisulfate [Plavix] 300 mg PO NOW STA
NIH Stroke Scale As Directed
Directions: Per protocol
Neurological Checks As Directed
Frequency: Per unit guidelines
02/02/24 09:50
MR Brain Without Contrast Routine
Comment:
Reason For Exam: Right MCA stroke suspected
Recent pill cam endoscopy?: No
02/02/24 09:51
Occupational Therapy Consult [Ot Eval And Treat] Routine
Pt Eval And Treat Routine
Treatment: Gait dysfxn
Activity Level: Out of Bed- Chair
Speech Therapy Eval & Treat Routine
Treatment: Aphasia
02/02/24 09:53
Echo 2D MMode Color/Doppler Routine
Reason for Study: Thrombotic source for stroke-like sxs
02/03/24 06:00
Cardiovascular Evaluation IN AM
Glycohemoglobin (HgbA1c) IN AM
02/03/24 08:00
Aspirin Low Dose EC [Aspir Low (Enteric Coated)] 81 mg PO DAILY
Clopidogrel Bisulfate [Plavix] 75 mg PO DAILY
Abnormal Lab Results
02/02/24
09:38
RBC 4.57 L 10^6/uL
(4.70-6.10)
MPV 10.5 H fL
(7.4-10.4)
Absolute Monos (auto) 0.7 H 10^3/uL
(0.1-0.6)
Monocytes % 10.0 H %
(1.7-9.3)
PT 15.9 H Sec
(11.4-14.6)
02/02/24 09:38
02/02/24 09:38
Vital Signs
Initial and Last Documented VS:
Initial Vital Signs
Temp Pulse Resp BP Pulse Ox
97.8 F 55 10 165/77 95
02/02/24 09:36 02/02/24 09:36 02/02/24 09:36 02/02/24 09:36 02/02/24 09:36
Last Documented Vital Signs
Temp Pulse Resp BP Pulse Ox
97.8 F 55 10 165/77 95
02/02/24 09:36 02/02/24 09:36 02/02/24 09:36 02/02/24 09:36 02/02/24 09:36
MDM/Problems Addressed
Differential Diagnosis Includes:
Patient with a CVA. Not a thrombolytic candidate. On Eliquis. Faithful with meds. No retrievable clot. Seen by neurology. Admit to medicine
*Pulse Oximetry
Patient hypoxic: no
*EKG
Interpreted by ED Provider?: Yes
Interpretation: abnormal
Comparison EKG: no changes
Heart Rate: 57
Rate: bradycardiac
Rhythm: sinus
Laura: normal axis
Interval: normal interval and first degree heart block
Ischemia: no ischemia
*Corporate Strategy Intern Interpretation
Rate: normal
Interpretation: normal
Heart Rate: 60
Rhythm: sinus
*Critical Care Note
Total Time (30-74mins, 75-104mins- exclusive of procedures): 10
Data Reviewed
Review of Other/Old Records Reveals: Labs, Records, Radiology Studies and Discharge Summary
ED Attending Note
-
Portions of this chart may have been created with voice recognition software.� Occasional wrong word or��sound alike� substitutions may have occurred due to the inherent limitations of voice recognition software.
Discharge Plan
Departure
Prescriptions:
No Action
nitroglycerin 0.4 MG tablet, sublingual
0.4 mg sublingual [id number] PRN (Reason: chest pain) Qty: 25 10RF
losartan 25 MG tablet
25 mg PO DAILY
ezetimibe 10 MG tablet
10 mg PO QPM
atorvastatin 40 MG tablet
40 mg PO QPM
pantoprazole 40 MG tablet,delayed release (DR/EC)
40 mg PO DAILY
melatonin 10 mg Tablet
10 mg PO HSPRN PRN (Reason: sleep)
metoprolol succinate 25 mg Tablet Extended Release 24 Hr
25 mg PO DAILY 30 Days Qty: 30 0RF
Eliquis 5 mg tablet
5 mg PO BID
aspirin [Children's Aspirin] 81 mg Tablet,Chewable
81 mg PO DAILY Qty: 90 0RF
cyanocobalamin (vitamin B-12) 1,000 mcg Tablet
1,000 mcg PO DAILY Qty: 90 0RF
Jardiance 10 mg tablet
10 mg PO QPM 90 Days Qty: 90 0RF
Interventions
Interventions:
*Risk Screen - Suicide Last Done: 02/02/24 09:36
*General Assessment Last Done: 02/02/24 09:36
*Neglect/Abuse Screening Last Done: 02/02/24 09:36
ED- Fall Risk Assessment Last Done: 02/02/24 09:36
*ED COVID-19 Vaccine History Last Done: 02/02/24 09:36
ED- Pulmonary Assessment Last Done: 02/02/24 09:36
ED- Neurological Assessment Last Done: 02/02/24 09:36
ED- Cardiac Assessment Last Done: 02/02/24 09:36
ED Swallowing Screen Last Done: 02/02/24 09:53
Discharge Date and Time
Print Language: NEPALI
--- NOTE | 2024-02-02 10:50 | PTOTSP ---
Speech Language Pathology
Pt seen for cognitive-linguistic evaluation via the Homeland Cognitive Assessment (MOCA), version 8.3. Pt with a score of 22/30 where normal range is 26-30. Pt with mild-mod cognitive deficits, which appear slightly worse than when discharged from
outpatient speech therapy in September 2023. Pt with the following scores on the following subtests: visuospatial/executive= 1/5, naming= 3/3, attention= 6/6, language= 3/3, abstraction= 2/2, delayed recall= 1/5, orientation= 6/6. Pt also with
mild-mod dysarthria.
Pt also seen for clinical bedside swallow evaluation. Known to FLOOR SUPERVISOR from CVA in May. He also participated in outpatient rehab from June to September. Loss of saliva on L noted at rest. P.O. trials of puree, regular solids, and thin liquids
provided. Slightly prolonged mastication, bolus formation, and A-P transit noted. Mild pocketing on L, which pt cleared with a cued lingual sweep. Slight labial leakage on L noted with liquids. Brief throat clear x2 but also noted in absence of
P.O. intake.
Recommend:
(1) Regular solids/thin liquids
(2) Aspiration precautions: sit upright, slow rate, check for pocketing on L
(3) Meds whole in puree
(4) Will consider VSE if any difficulty noted with P.O. intake
(5) FLOOR SUPERVISOR to continue to follow
--- NOTE | 2024-02-02 11:24 | CON.NEURO4 ---
Consultation - Neurology 4
-
CONSULTING PHYSICIAN: Elijah Mcdaniels
REFERRING PHYSICIAN: Hospitalist
DICTATED BY: Elijah Mcdaniels
DATE/TIME OF REQUEST: 02/02/24
DATE/TIME OF CONSULTATION: 02/02/24
Reason for Consultation: Right face and arm acute weakness concern for acute stroke
History of Present Illness:
The patient is a 73-year-old right-handed male with a past no history of previous ischemic stroke, aortic aneurysm status postrepair, coronary artery disease presenting to hospital with acute onset of left facial and arm weakness along with speech
change.
Patient woke up this morning around 630 without any noticeable symptoms and had onset of the above symptoms at approximately 730 and presented to the ED via ambulance as a stroke alert. Patient does report compliance with apixaban recently and his
last dose was this morning. No missed doses at all recently no recent illnesses no head injuries. Patient does also take aspirin 81 mg daily. He currently denies any headache.
Patient had had successful endovascular repair of aortic aneurysm in early November here.
He had a ischemic stroke mostly in the right MCA territory but also small left MCA ischemic stroke in May 2023, he did have a successful stay at acute debilitation following this and was discharged home in early June 2023. He reports no
significant long-lasting deficits from the ischemic stroke.
Past Medical History: Atrial fibrillation, embolic bilateral ischemic stroke May 2023, aortic aneurysm s/p endovascular repair, hypertension, hyperlipidemia, coronary artery disease, BPH, glaucoma, obstructive sleep apnea,
Surgical History: Cardiac stent, tonsillectomy, umbilical hernia repair, endovascular aortic aneurysm repair
Family History: Non-contributory
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
Allergies: No known drug allergies
Review of Symptoms:
Patient denies any fever, headache, chest pain, shortness of breath, GI or symptoms.
Physical Exam:
Elderly man no acute distress no signs of head or neck trauma eyes are clear oropharynx is clear neck supple with no masses no meningismus heart rate regular breathing unlabored with no wheezes, abdomen soft nontender no lower extremity edema or
rashes
Neurologic Examination:
Patient is fully awake and alert he provides adequate history and is conversational, no signs of severe neglect, recognizes his own left arm and does attend to the left side, speech is slow but there is no evidence of aphasia, comprehension and
multistep commands is intact, spontaneous speech is fluent and naming is intact. Good historian with full orientation to situation recent events, month, holidays.
Cranial nerve examination shows significant right facial weakness, mild dysarthria, pupils are 3 mm equal round react light bilaterally, visual ziegler intact confrontation bilaterally, extraocular wounds are full, tongue is midline
Motor examination shows left-sided arm weakness with downward drift of the left arm, 4/5 shoulder abduction arm flexion, no drift of the legs bilaterally, hip flexion 5/5 bilaterally. Normal muscle bulk and tone no abnormal movements
Mild sensory neglect on the left leg
Reflexes are diminished throughout biceps triceps brachialis patella 1+ no clonus Babinski is negative
No ataxia out of proportion to weakness on the left arm, right arm with no ataxia
Gait examination deferred
Neuro Imaging:
CT head noncontrast with chronic infarct in the anterior portion of the basal ganglia, chronic area of encephalomalacia representing chronic infarct in the right frontal lobe. No acute hemorrhage nor acute ischemia or infarct seen.
CTA of the head and neck with no intracranial occlusion seen in the M1 or M2 arteries within the brain, vertebral arteries and basilar artery patent bilaterally. Carotid stenosis approximating 70% on the right internal carotid artery with mild
calcification and soft plaque is seen.
Patient has the following risk factors for their symptoms: Previous stroke, atrial fibrillation, CAD, carotid stenosis, hypertension
IV Tenecteplase/IAT candidacy: Not a candidate for TNK given apixaban dose this morning, no signs of a large vessel occlusion would not be an IAT candidate
Recommendations:
1. Hold apixaban
2. Place on dual antiplatelet therapy aspirin and clopidogrel for time being
3. Permissive hypertension goal less than 220/120 until tomorrow morning at approximately 7:30 AM
4. Neurologic checks and NIH stroke scale
5. Check brain MRI without contrast
-If MRI brain supports stroke within the right carotid territory only then would seek vascular surgery consultation out of concern for symptomatic right carotid stenosis
6. Although low yield would get an updated echocardiogram given his last was in May 2023
7. Continue atorvastatin 40 mg
8. Check lipid panel and hemoglobin A1c
9. Goal normoglycemia
10. Speech physical and occupational therapy evaluation
11. Stroke education materials
Will follow
Discussed patient care with: Patient, Dr Mathews
NIH Stroke Score
Subsequent NIH Scale
Date of Subsequent NIH Scale: 02/02/24
Time of Subsequent NIH Scale: 09:00
NIH Stroke Score
Level of Consciousness: 0 - Alert
LOC Questions: 0-Answers both correctly
LOC Commands: 0-Performs both correctly
Best Horizontal Gaze: 0-Normal
Visual Ziegler: 0=Normal, no visual loss
Facial Palsy: 2=Partial paralysis
Motor - Right Arm: 0=No drift 10 seconds
Motor - Left Arm: 1=Drift < 10 seconds
Motor - Right Le-No drift 5 seconds
Motor - Left Le-No drift 5 seconds
Limb Ataxia: 0-Absent
Sensation: 1-Mild loss
Best Language: 0-No aphasia
Dysarthria: 1-Mild slurring
Extinction and Inattention: 1-Sensory inattention
Total Score:: 6
Modified [place] (mRS) Score
Modified Kal[place] Scale (mRS): No symptoms
Score: 0
Home Medications
-
Home Medications
nitroglycerin 0.4 mg sublingual tablet 0.4 mg sublingual [id number] PRN chest pain #25 tabs 03/02/19
atorvastatin 40 mg tablet 40 mg PO QPM High Cholesterol 06/01/21
ezetimibe 10 mg tablet 10 mg PO QPM High Cholesterol 06/01/21
losartan 25 mg tablet 25 mg PO DAILY Blood Pressure 06/01/21
pantoprazole 40 mg tablet,delayed release 40 mg PO DAILY Gastrointestinal Issue 06/04/23
melatonin 10 mg tablet 10 mg PO HSPRN PRN sleep 06/07/23
metoprolol succinate 25 mg tablet,extended release 24 hr 25 mg PO DAILY 30 days #30 tabs 06/09/23
cyanocobalamin (vitamin B-12) 1,000 mcg tablet 1,000 mcg PO DAILY #90 tabs 06/19/23
empagliflozin 10 mg tablet (Jardiance) 10 mg PO QPM Heart Failure 90 days #90 tabs 06/19/23
apixaban 5 mg tablet (Eliquis) 5 mg PO BID Blood Clot Prevention/Tx 11/07/23
aspirin 81 mg chewable tablet (Children's Aspirin) 81 mg PO DAILY #90 tabs 11/08/23
Allergies
-
Allergies
Allergy/AdvReac Type Severity Reaction Status Date / Time
No Known Allergies Allergy Verified 02/02/24 09:53
Vital Signs / Labs
-
Vital Signs and Labs:
Temp Pulse Resp BP Pulse Ox
97.8 F 55 10 165/77 95
02/02/24 09:36 02/02/24 09:36 02/02/24 09:36 02/02/24 09:36 02/02/24 09:36
02/02/24 09:38
02/02/24 09:38
02/02/24
09:38
RBC 4.57 L
MPV 10.5 H
Absolute Monos (auto) 0.7 H
Monocytes % 10.0 H
PT 15.9 H
[2024-02-02] MEDS: TYLENOL 1000 MG PO (12:25)
--- NOTE | 2024-02-02 13:44 | CON.VAS ---
Addendum entered and electronically signed by Umer Peralta III, MD 02/02/24 18:02:
This patient was seen and examined with MYLES Goncalves. I agree with the history and physical exam as well as the assessment and plan. I have the following additions:
Patient well-known to me. EVAR October 2023.
Right hemispheric stroke with right sided carotid stenosis
I reviewed the CT angiogram images personally. Significant soft plaque is identified in the proximal right internal carotid artery contributing to stenosis.
Discussed this case with Dr. Mcdaniels. Carotid lesion felt to be the culprit for this clinical event.
I am recommending carotid intervention with right carotid endarterectomy. The technical aspects of this procedure were discussed with him and his in detail. The benefits and rationale for this approach were discussed with both of them in
detail. Operative risks were discussed with him in detail including but not limited to stroke, heart attack, bleeding, infection, cranial nerve injury. I also explained the need for continued aggressive medical therapy for his arterial disease
risk factors and ongoing surveillance follow-up with me.
They expressed a clear understanding of our conversation and agreed to proceed with surgery as detailed above.
Signed:
Umer Peralta III, MD
[facility]
[phone] (gkxm)
Original Note:
Consultation
Consultation Request
Performing Provider: Fabian
Reason for Consultation: Carotid stenosis
Medical History
-
Chief Complaint: Left facial droop, left arm weakness, speech impairment
History of Present Illness:
73-year-old male well-known to our service, he had recent EVAR on 11/07/[address] Peralta. Other past medical history significant for bilateral CVA May 2023, A-fib, AAA, hypertension, hyperlipidemia, CAD, and cardiac stents. Patient presented
to the ER this a.m. for new onset left facial and arm weakness along with speech changes which began at 730 this a.m. patient woke up around 630 with no noticeable symptoms. Patient takes Eliquis at home and states he has not missed a dose. Per
the patient he is no residual deficits from his prior stroke.
Vascular consult for carotid stenosis eval. Patient seen at bedside in the ER with Dr. Peralta.
CT head: Negative
CTA head and neck: Atherosclerotic changes of the carotid bifurcation and proximal internal carotid artery bilaterally, right greater than left, difficult to measure in light of tortuosity, calcific plaque soft plaque. Atherosclerotic narrowing of
the proximal right internal carotid artery likely represents a greater than 70% stenosis and likely less than 50% stenosis of the proximal left internal carotid artery.
MRI brain: Scattered tiny nonhemorrhagic infarcts in the right MCA territory, most prominent superiorly in the right parietal lobe. Less involved than on the prior examination May 2023. Most likely embolic etiology.
Past Medical History
Past Medical History: Other (Atrial fibrillation, embolic bilateral ischemic stroke May 2023, aortic aneurysm s/p endovascular repair, hypertension, hyperlipidemia, coronary artery disease, BPH, glaucoma, obstructive sleep apnea)
Past Surgical History: Other (EVAR, cardiac stents, tonsillectomy, umbilical hernia repair)
Social History
Tobacco: Former Smoker (Quit 10+ years ago)
Alcohol: Former
Drug: None
Personal:
Living: With Family
Employment: Retired
Family History
Family History: Reviewed & Not Pertinent
Allergies / Home Medications
Allergy/AdvReac Type Severity Reaction Status Date / Time
No Known Allergies Allergy Verified 02/02/24 09:53
�Medication �Instructions �Recorded �Confirmed �Type
nitroglycerin 0.4 mg sublingual 0.4 mg sublingual [id number] PRN 03/02/19 02/02/24 Rx
tablet chest pain #25 tabs
atorvastatin 40 mg tablet 40 mg PO QPM High Cholesterol 06/01/21 02/02/24 History
ezetimibe 10 mg tablet 10 mg PO QPM High Cholesterol 06/01/21 02/02/24 History
losartan 25 mg tablet 25 mg PO DAILY Blood Pressure 06/01/21 02/02/24 History
pantoprazole 40 mg tablet,delayed 40 mg PO DAILY Gastrointestinal 06/04/23 02/02/24 History
release Issue
melatonin 10 mg tablet 10 mg PO HSPRN PRN sleep 06/07/23 02/02/24 History
metoprolol succinate 25 mg 25 mg PO DAILY 30 days #30 tabs 06/09/23 02/02/24 Rx
tablet,extended release 24 hr
cyanocobalamin (vitamin B-12) 1,000 mcg PO DAILY #90 tabs 06/19/23 02/02/24 Rx
1,000 mcg tablet
empagliflozin 10 mg tablet 10 mg PO QPM Heart Failure 90 days 06/19/23 02/02/24 Rx
(Jardiance) #90 tabs
apixaban 5 mg tablet (Eliquis) 5 mg PO BID Blood Clot 11/07/23 02/02/24 History
Prevention/Tx
aspirin 81 mg chewable tablet 81 mg PO DAILY #90 tabs 11/08/23 02/02/24 Rx
(Children's Aspirin)
Review of Systems
-
History Source: Patient and Family
All other systems: Negative unless noted
Constitutional: Reports No Symptoms
EENT: Reports No Symptoms
Respiratory: Reports No Symptoms
Cardiac: Reports No Symptoms
Neurological: Reports Weakness and Other (Trouble speaking)
Physical Exam
Vital Signs
Temp Pulse Resp BP Pulse Ox
97.8 F 52 14 154/98 95
02/02/24 09:36 02/02/24 13:00 02/02/24 13:00 02/02/24 13:00 02/02/24 13:00
Lab Results
02/02/24 09:38
02/02/24 09:38
Physical Exam
General: No Apparent Distress
HEENT: Normocephalic and Atraumatic
Respiratory: Non Labored Respirations
Cardiac: Negative JVD
GI: Soft and Non Tender
Musculoskeletal: No Clubbing, No Cyanosis and No Edema
Skin: Warm
Neuro: Awake, Alert, Oriented and Other (Left facial droop, left arm weakness)
Psych: Calm
Assessment / Plan
-
73-year-old male with left-sided weakness, right ICA stenosis, right-sided stroke
Plan:
-Add on OR schedule for right CEA tomorrow, cleared with neurology
-N.p.o. after midnight
-Admit to medicine
-Agree with aspirin/Plavix
-EEG aware
Data Reviewed
-
CT Scan: Discussed with Patient
Medical Tests (Nuc Med, Echo etc): Discussed with Patient
Labs: Labs Reviewed by me
--- NOTE | 2024-02-02 15:12 | HPS.HSE ---
Addendum entered and electronically signed by Darryn Eli MD 02/02/24 15:29:
okay for hsq for dvt ppx as per neuro
Original Note:
Family Physician
-
Family Physician: Pavel Coy
Chief Complaint
-
Right arm and face weakness
History of Present Illness
73-year-old male with prior history of ischemic stroke, aortic aneurysm status postrepair, coronary artery disease, paroxysmal atrial fibrillation, hypertension, hyperlipidemia, hypertension, GERD, BPH, CATARINO now presents for acute left facial and arm
weakness. Associated with speech changes. Patient woke up at 630 this morning, did not notice any symptoms although and noted upper left lip drooping, speech change, left arm weakness prompting hospital evaluation. Patient notices symptoms
at 730. Patient has been on Eliquis, compliant. Otherwise denies fever, chills, nausea, vomiting, dizziness. Does not knowledge of mild right frontal headache. Otherwise, patient is afebrile, respirate 18, pulse 53, 98% on room air. Mildly
hypertensive, BP 154/98. Initial head CT unremarkable for acute pathology although on MRI, scattered tiny nonhemorrhagic infarcts in the right MCA territory, most prominent superiorly in the right parietal lobe. Most likely embolic etiology ,
patient placed on aspirin, Plavix. Vascular consulted for CEA.
Medical History
Past Medical History
Past Medical History: Reports Other (Paroxysmal atrial fibrillation, coronary artery disease, hypertension, AAA, hyperlipidemia, hypertension, GERD, BPH, prediabetic, diverticulosis,.)
Past Surgical History: Reports Other (No recent major surgery)
Social History
Tobacco: Former Smoker
Alcohol: Occasional
Drug: None
Personal:
Living: With Family
Employment: Retired
Family History
Family History: Other (No history of strokes or hypertension. His mother had Alzheimer's dementia)
Allergies / Home Medications
Allergies reflects when Allergies were last updated in [facility].
Home Medications with original date entered in [facility]
Allergy/Medication List:
Allergies
Allergy/AdvReac Type Severity Reaction Status Date / Time
No Known Allergies Allergy Verified 02/02/24 09:53
Home Medications
nitroglycerin 0.4 mg sublingual tablet 0.4 mg sublingual [id number] PRN chest pain #25 tabs 03/02/19
atorvastatin 40 mg tablet 40 mg PO QPM High Cholesterol 06/01/21
ezetimibe 10 mg tablet 10 mg PO QPM High Cholesterol 06/01/21
losartan 25 mg tablet 25 mg PO DAILY Blood Pressure 06/01/21
pantoprazole 40 mg tablet,delayed release 40 mg PO DAILY Gastrointestinal Issue 06/04/23
melatonin 10 mg tablet 10 mg PO HSPRN PRN sleep 06/07/23
metoprolol succinate 25 mg tablet,extended release 24 hr 25 mg PO DAILY 30 days #30 tabs 06/09/23
cyanocobalamin (vitamin B-12) 1,000 mcg tablet 1,000 mcg PO DAILY #90 tabs 06/19/23
empagliflozin 10 mg tablet (Jardiance) 10 mg PO QPM Heart Failure 90 days #90 tabs 06/19/23
apixaban 5 mg tablet (Eliquis) 5 mg PO BID Blood Clot Prevention/Tx 11/07/23
aspirin 81 mg chewable tablet (Children's Aspirin) 81 mg PO DAILY #90 tabs 11/08/23
Review of Systems
-
History Source: Patient
A 12 point ROS was completed and negative except as noted: Yes
Physical Exam
Vital Signs
Vital Signs
Temp Pulse Resp BP Pulse Ox
97.8 F 53 18 154/98 98
02/02/24 09:36 02/02/24 14:15 02/02/24 14:15 02/02/24 13:00 02/02/24 14:15
Physical Exam
General: Well Developed and Other (Slight slurring)
HEENT: Other (Left upper lip droop)
Respiratory: Clear
Cardiac: S1/S2 and Irregular Rhythm
GI: Non Tender
Rectal: No Maroon Stools
Genito-urinary: No costovertebral tender
Musculoskeletal: No Clubbing
Skin: Warm
Neuro: Alert, Oriented, AO x 3 and Other (Left arm weakness)
Hematologic/Lymphatic: No Lymphadenopathy
Psych: Calm
Laboratory Results
-
02/02/24 09:38
02/02/24 09:38
Laboratory Results
PT 15.9 Sec (11.4-14.6) H 02/02/24 09:38
INR 1.29 02/02/24 09:38
APTT 31.2 Sec (23.4-35.0) 02/02/24 09:38
Data Reviewed
-
CT Scan: Image Personally Visualized and interpreted and Report Reviewed by me
MRI: Report Reviewed by me
Lab Data: Labs Reviewed by me
Impression/Plan
-
IMPRESSION:
73-year-old male with prior history of ischemic stroke, aortic aneurysm status postrepair, coronary artery disease, paroxysmal atrial fibrillation, hypertension, hyperlipidemia, hypertension, GERD, BPH, CATARINO now presents for acute left facial and arm
weakness associated speech changes, found to have nonhemorrhagic infarcts in the right MCA territory, most prominent in the right parietal lobe.
PLAN:
#CVA, appears embolic
#Right ICA stenosis
� Appreciate neurology, vascular recommendations
� N.p.o. after midnight
� Right CEA tomorrow
� Continue aspirin, Plavix, statin
� Hold apixaban
� Permissive hypertension: Permissive hypertension goal less than 220/120 until tomorrow morning at approximately 7:30 AM
� NIH scale
� Echocardiogram
� Follow lipid panel, hemoglobin A1c
� PT/OT/speech therapy
#History of persistent atrial fibrillation
Continue Toprol for rate control
Echocardiogram
#Primary hypertension
� Hold on antihypertensives, maintain permissive hypertension
#Abdominal aortic aneurysm
- EVAR on 11/07/[address] Peralta
-F/u outpatient
#DVT ppx
-SCDs, hold on anticoagulation at this time for concern of hemorrhagic conversion/OR tomorrow
-ctm for initiation
[2024-02-02] MEDS: LR 1000 IV (17:15)
[2024-02-02] MEDS: LIPITOR 40 MG PO (17:15)
[2024-02-02] MEDS: ZETIA 10 MG PO (17:15)
[2024-02-02] MEDS: HEPARIN 5000 UNITS SC (20:23)
[2024-02-02] MEDS: MELATONIN 5 MG PO (21:51)
[2024-02-02] MEDS: TYLENOL 650 MG PO (23:48)
[2024-02-03] VITALS (11 sets, daily range): BP systolic 118–165; BP diastolic 60–95; PULSE 56; O2SAT 97–99
[2024-02-03 02:05] LABS: Urine Albumin Negative (Neg - Trace); Urine Bilirubin Negative (Negative); Urine Character Clear (Clear); Urine Color Yellow; Urine Glucose 3+ (Negative); Urine Ketone 2+ (Negative); Urine Leukocyte Negative (Negative); Urine Nitrite Negative (Negative); Urine Occult Blood Negative (Negative); Urine Specific Gravity 1.015 (<1.030); Urine Urobilinogen Negative (Neg - 1+); Urine pH 6.5 (5.0-9.0)
[2024-02-03] MEDS: LR 1000 IV (06:03)
[2024-02-03 06:47] LABS: Hematocrit 40.8 % (39.0-52.0); Hemoglobin 13.8 g/dL (13.0-18.0); Mean Corp Hgb Conc. 33.8 g/dL (33.0-37.0); Mean Corpuscular Hgb 30.6 pg (27.0-31.0); Mean Corpuscular Volume 90.5 fL (80.0-94.0); Mean Platelet Volume 9.7 fL (7.4-10.4); Platelet Count 156 10^3/uL (130-400); Red Blood Cell Count 4.51 10^6/uL (4.70-6.10); Red Cell Dist. Width 13.2 % (11.5-14.5); White Blood Cell Count 6.9 10^3/uL (4.8-10.8)
[2024-02-03 07:00] LABS: ALT (SGPT) 20 U/L (0-50); AST (SGOT) 23 U/L (17-59); Albumin 3.7 g/dl (3.5-5.0); Alkaline Phosphatase 73 U/L (38-126); Blood Urea Nitrogen 14 mg/dl (9-20); Calcium 9.1 mg/dl (8.4-10.2); Carbon Dioxide 27 mmol/L (22-30); Chloride 104 mmol/L (98-107); Estimated Creatinine Clearance 73 ml/min; Glucose 93 mg/dl (70-99); HDL Cholesterol 34 mg/dl; LDL Cholesterol, Calculated 45 mg/dl; Magnesium 1.8 mg/dl (1.6-2.3); Potassium 4.1 mmol/L (3.5-5.1); Sodium 137 mmol/L (135-145); Total Bilirubin 0.9 mg/dl (0.2-1.3); Total Cholesterol 95 mg/dl (50-199); Total Protein 6.4 g/dl (6.3-8.2); Triglyceride 82 mg/dl (10-149); Very Low Density Lipoprotein 16 mg/dl (0-30); eGFR > 60.00
[2024-02-03] MEDS: ASPIR LOW (ENTERIC COATED) 81 MG PO (07:35)
[2024-02-03] MEDS: PLAVIX 75 MG PO (07:35)
[2024-02-03] MEDS: TOPROL XL 25 MG PO (07:35)
[2024-02-03] MEDS: HEPARIN 5000 UNITS SC ×2 (07:35→21:28)
[2024-02-03] MEDS: BACTROBAN 2% OINTMENT 1 APPLIC NASAL (07:35)
[2024-02-03] MEDS: PERIDEX 0.12% ORAL RINSE 15 ML PO (07:35)
[2024-02-03] MEDS: PROTONIX 40 MG PO (07:35)
--- NOTE | 2024-02-03 08:11 | W.PN.NEURO.1 ---
Addendum entered and electronically signed by Perry Mcdaniels MD 02/03/24 11:10:
I saw evaluate the patient I reviewed note by Carmen Verma agree to find the following comments:
73-year-old male presented to hospital with symptoms of right MCA ischemic stroke he is not a candidate for tenecteplase given compliance with apixaban. No large vessel occlusion seen on the CTA of the head and neck does have significant right
internal carotid artery stenosis.
Neurologic examination is unchanged compared to yesterday there is dysarthria and left facial weakness, left arm drift and mild left arm ataxia.
MRI brain reviewed with acute ischemic stroke only in the right MCA territory.
Assessment: Presumed symptomatic right carotid stenosis. Mild right MCA ischemic stroke.
He had had previous stroke which was bilateral in May 2023 which could have been atheroembolic from aorta versus cardioembolic mechanism. He made good recovery from his previous stroke.
Recommendations
-Acceptable for pursuing right carotid revascularization today in OR
-Continue to hold apixaban
-Continue on aspirin and clopidogrel for the time being, eventually we would stop clopidogrel and add back apixaban when felt safe from postoperative/surgical perspective
-Goal normotension
-Neurologic checks NIH scales
-Post operative monitoring in ICU
Will follow
Original Note:
Documented by User: Carmen Samaniego NP 02/03/24 10:51
Today's Communication / Plan
-
.
Neuro Assessment/Plan
Assessment
The patient is a 73-year-old right-handed male with a PMH of previous ischemic stroke 05/2023, aortic aneurysm status post repair, CAD presenting to hospital with acute onset of left facial and arm weakness along with speech change.
Patient woke up this morning around 630 without any noticeable symptoms and had onset of the above symptoms at approximately 730 and presented to the ED via ambulance as a stroke alert. Patient does report compliance with apixaban recently and his
last dose was this morning. No missed doses at all recently no recent illnesses no head injuries. Patient does also take aspirin 81 mg daily. He was not a candidate for TNK/IAT due to apixaban usage and no LVO on imaging.
Patient had had successful endovascular repair of aortic aneurysm in early November here.
He had a ischemic stroke mostly in the right MCA territory but also small left MCA ischemic stroke in May 2023, he did have a successful stay at acute rehabilitation following this and was discharged home in early June 2023. He reports no
significant long-lasting deficits from the ischemic stroke.
-CTA head/neck 02/02/24: No findings to suggest proximal intracranial arterial significant stenosis or vessel cut off, including M1 and M2 segments of the middle cerebral arteries bilaterally. Atherosclerotic changes of the carotid bifurcation and
proximal internal carotid artery bilaterally, right greater than left, difficult to measure in light of tortuosity, calcific plaque soft plaque. Atherosclerotic narrowing of the proximal right internal carotid artery likely represents a greater than
70% stenosis and likely less than 50% stenosis of the proximal left internal carotid artery.
-MRI brain 02/03/24: Scattered tiny nonhemorrhagic infarcts in the right MCA territory, most prominent superiorly in the right parietal lobe. Less involved than on the prior examination May 2023. Most likely embolic etiology.
-TTE 02/02/24: EF 60-65%. No obvious thrombus seen.
I. Acute R MCA territory scattered ischemic stroke; etiology likely due to R ICA 70% stenosis.
II. Afib, compliance with apixaban.
III. Old R MCA and small L MCA territory ischemic stroke 05/2023.
Plan
-R CEA today by vascular surgery.
-Holding apixaban.
-DAPT with aspirin 81mg and Plavix 75mg daily until apixaban can be resumed.
-Goal normotension.
-LDL goal <70. LDL is 45. Continue home atorvastatin 40mg daily as LDL is at goal.
-Goal normoglycemia, hbA1c is 6.1.
-NIHSS and neurological checks per unit guidelines.
-Provide patient with stroke education packet.
-PT/OT/ST evaluations.
-DVT prophylaxis.
-Patient will need outpatient follow-up with Neurology, may see the RECRUITMENT INTERN or one of the physicians.
Subjective/Objective
Subjective Data
Date of Service: February 03, 2024
Patient reports having a mild right temporal headache overnight, relieved by PRN Tylenol. He reports that his left hand feels mildly improved today but his speech is still slurred. Currently he denies any headache, dizziness, vision changes,
swallowing difficulty, numbness, nausea, chest pain, palpitations, and shortness of breath.
Objective Data
Vital Signs
Temp Pulse Resp BP Pulse Ox
97.8 F 59 17 149/95 97
02/03/24 07:00 02/03/24 07:35 02/03/24 07:00 02/03/24 07:35 02/03/24 07:00
Lab Results
02/03/24 06:24
02/03/24 06:24
PT 15.9 Sec (11.4-14.6) H 02/02/24 09:38
INR 1.29 02/02/24 09:38
APTT 31.2 Sec (23.4-35.0) 02/02/24 09:38
Sodium 137 mmol/L (135-145) 02/03/24 06:24
Potassium 4.1 mmol/L (3.5-5.1) 02/03/24 06:24
BUN 14 mg/dl (9-20) 02/03/24 06:24
Glucose 93 mg/dl (70-99) 02/03/24 06:24
Calcium 9.1 mg/dl (8.4-10.2) 02/03/24 06:24
LDL Cholesterol, Calc 45 mg/dl 02/03/24 06:24
Patient Allergies
No Known Allergies Allergy (Verified 02/02/24 09:53)
LDL Level: <70, continue statin
Review of Systems
-
History Source: Patient
EENT: Negative Blurry Vision, Decreased Vision or Swallowing Difficulty
Respiratory: Negative Cough or Trouble Breathing
Cardiac: Negative Chest Pain or Palpitations
Abdomen/GI: Negative Nausea
Genitourinary: Negative Difficulty Voiding
Neuro: Weakness and Speech Problem; Negative Dizzy, Headache, Numbness, Ataxia or Tremors
Physical Exam
-
General: Well Developed, Well Nourished and No Apparent Distress
Eyes: PERRLA; Negative No Ptosis (slight left ptosis)
HEENT: Normocephalic and Atraumatic
Neck: Full Range of Motion
Respiratory: No Dyspnea
Extremities: No Clubbing, No Cyanosis and No Edema
Psych: Unremarkable
Extended Neurological Exam
Mood & Affect: Mood Unremarkable and Affect Unremarkable
Attention Span & Concentration: Awake, Alert and Interactive
Memory: Unremarkable (AAOx3) and Able to Recall
Tremor: Hand Tremor Absent and Head Tremor Absent
Involuntary Movement: None
Speech: Quantity Unremarkable, Rate of Production Unremarkable and Dysarthric
Cranial Nerve II: Left Eye: Pupillary Reactivity Unremarkable, Pupillary Size Unremarkable and Visual Ziegler Intact
Cranial Nerve II: Right Eye: Pupillary Reactivity Unremarkable, Pupillary Size Unremarkable and Visual Ziegler Intact
Cranial Nerves III, IV, : Extraocular Movement: Extraocular Movement Full in all Directions
Cranial Nerve V: Facial Sensation: Intact to Light Touch
Cranial Nerve VII: Facial Symmetry: Reduced (left facial drooping)
Cranial Nerve VIII: Hearing: Unremarkable Hearing to Normal Conversational Volume
Cranial Nerves IX, X: Palate Movement: Palate Elevation Symmetric
Cranial Nerve XI: Shoulder Shrug: Unremarkable
Cranial Nerve XII: Tongue Protusion: Midline
Muscle Strength, Overall: Reduced on Left (LUE 4+/5)
Pronator Drift: Drift in Left Upper Extremity and No Drift in Lower Extremities
Deep Tendon Reflexes: Unremarkable Throughout
Cold Sensation: Unremarkable
Vibration Sensation: Unremarkable
Touch Sensation: Double Simultaneous Stimulation Unremarkable
Coordination: [id number] Testing Unremarkable
Babinski Sign: Absent Bilaterally
Modified [place] Score (MRS)
-
Modified [place] Scale (mRS): Slight disability. Able to look after own affairs.
Score: 2
Data Reviewed
-
CT-A: Report Reviewed and Image Reviewed
CT Head: Report Reviewed and Image Reviewed
MRI Head: Report Reviewed and Image Reviewed
Echocardiogram: Report Reviewed
Labs: Report Reviewed
Lipid Profile: Report Reviewed
HgbA1C: Report Reviewed
Reviewed with: Physician, Patient and Family
Medications
-
Active Medications
Generic Name Dose Route Start Last Admin
Trade Name Freq PRN Reason Stop Dose Admin
Acetaminophen 650 mg 02/02/24 23:34 02/02/24 23:48
Acetaminophen 325 Mg Tablet PO 03/01/24 23:33 650 mg
Q4HPRN PRN Administration
mild pain/ fever>100.5F
Aspirin 81 mg 02/03/24 08:00 02/03/24 07:35
Aspirin 81 Mg (Enteric Coated) Tablet PO 03/02/24 07:59 81 mg
DAILY VIINCIO Administration
Atorvastatin Calcium 40 mg 02/02/24 18:00 02/02/24 17:15
Atorvastatin (Lipitor) 40 Mg Tablet PO 03/01/24 17:59 40 mg
QPM VINICIO Administration
Bisacodyl 10 mg 02/02/24 14:29
Bisacodyl 10 Mg Rectal Suppository RECTAL 03/01/24 14:28
[id number] PRN
constipation
Clopidogrel Bisulfate 75 mg 02/03/24 08:00 02/03/24 07:35
Clopidogrel 75 Mg Tablet PO 02/23/24 08:01 75 mg
DAILY VINICIO Administration
Ezetimibe 10 mg 02/02/24 18:00 02/02/24 17:15
Ezetimibe (Zetia) 10 Mg Tablet PO 03/01/24 17:59 10 mg
QPM VINICIO Administration
Heparin Sodium 5,000 units 02/02/24 20:00 06/18/24 07:35
Heparin 5,000 Units/Ml 1 Ml Vial SC 03/01/24 19:59 5,000 units
Q12 VINICIO Administration
Lactated Ringer's 1,000 mls @ 75 mls/hr 02/02/24 18:00 02/03/24 06:03
Lr IV 1,000 mls
[id number] VINICIO Administration
Melatonin 5 mg 02/02/24 22:00 02/02/24 21:51
Melatonin 5 Mg Tablet PO 03/01/24 21:59 5 mg
HS VINICIO Administration
Metoprolol Succinate 25 mg 02/03/24 08:00 02/03/24 07:35
Metoprolol 25 Mg Extended Release Tablet PO 03/02/24 07:59 25 mg
DAILY VINICIO Administration
Pantoprazole Sodium 40 mg 02/03/24 08:00 02/03/24 07:35
Pantoprazole 40 Mg Delayed Release Tablet PO 03/02/24 07:59 40 mg
DAILY VINICIO Administration
Polyethylene Glycol 17 grams 02/02/24 14:29
Polyethylene Glycol Powder 17 Grams Packet PO 03/01/24 14:28
DAILYPRN PRN
constipation
Senna/Docusate Sodium 1 tablet 02/02/24 14:29
Docusate W/Senna (Gabriela-Colace) Tablet PO 03/01/24 14:28
BIDPRN PRN
constipation
Sodium Chloride 0 flush 02/02/24 18:00
Sodium Chloride 0.9% (Flush) Syringe IV 03/01/24 17:59
PER PROTOCOL VINICIO
Home Medications
�Medication �Instructions �Recorded
nitroglycerin 0.4 mg sublingual 0.4 mg sublingual [id number] PRN 03/02/19
tablet chest pain #25 tabs
atorvastatin 40 mg tablet 40 mg PO QPM High Cholesterol 06/01/21
ezetimibe 10 mg tablet 10 mg PO QPM High Cholesterol 06/01/21
losartan 25 mg tablet 25 mg PO DAILY Blood Pressure 06/01/21
pantoprazole 40 mg tablet,delayed 40 mg PO DAILY Gastrointestinal 06/04/23
release Issue
melatonin 10 mg tablet 10 mg PO HSPRN PRN sleep 06/07/23
metoprolol succinate 25 mg 25 mg PO DAILY 30 days #30 tabs 06/09/23
tablet,extended release 24 hr
empagliflozin 10 mg tablet 10 mg PO QPM Heart Failure 90 days 06/19/23
(Jardiance) #90 tabs
apixaban 5 mg tablet (Eliquis) 5 mg PO BID Blood Clot 11/07/23
Prevention/Tx
aspirin 81 mg chewable tablet 81 mg PO DAILY Blood Clot 02/02/24
(Children's Aspirin) Prevention/Tx
cyanocobalamin (vitamin B-12) 1,000 mcg PO DAILY Supplement 02/02/24
1,000 mcg tablet
NIH Stroke Score
Subsequent NIH Scale
Date of Subsequent NIH Scale: 02/03/24
Time of Subsequent NIH Scale: 08:30
NIH Stroke Score
Level of Consciousness: 0 - Alert
LOC Questions: 0-Answers both correctly
LOC Commands: 0-Performs both correctly
Best Horizontal Gaze: 0-Normal
Visual Ziegler: 0=Normal, no visual loss
Facial Palsy: 2=Partial paralysis
Motor - Right Arm: 0=No drift 10 seconds
Motor - Left Arm: 1=Drift < 10 seconds
Motor - Right Le-No drift 5 seconds
Motor - Left Le-No drift 5 seconds
Limb Ataxia: 0-Absent
Sensation: 0-Normal
Best Language: 0-No aphasia
Dysarthria: 1-Mild slurring
Extinction and Inattention: 0-No abnormality
Total Score:: 4
Modified [place] (mRS) Score
Modified [place] Scale (mRS): Slight disability. Able to look after own affairs.
Score: 2

Documented by User: Perry Mcdaniels MD 02/03/24 11:06
Modified [place] Score (MRS)
-
Score: 2
NIH Stroke Score
NIH Stroke Score
Total Score:: 4
Modified [place] (mRS) Score
Score: 2
[2024-02-03 08:39] LABS: Glycohemoglobin (HgbA1c) 6.1 % (4.0-5.6)
--- NOTE | 2024-02-03 11:46 | CON.INTV ---
Documented by User: Emerita Lock, Resident, 02/03/24 16:40
Consultation
Consultation Request
Date/Time Consultation Requested: 02/03/24
Date/Time Consultation Performed: 02/03/24
Requesting Provider:
Performing Provider:
Reason for Consultation: R CEA
Medical History
-
Chief Complaint: s/p R CEA
Past Medical History
Past Medical History: Other (see A&P for [facility])
Social History
Tobacco: Former Smoker
Alcohol: Occasional
Drug: None
Personal:
Living: With Family
Employment: Retired
Family History
Family History: Reviewed & Not Pertinent
Allergies / Home Medications
Allergies
Allergy/AdvReac Type Severity Reaction Status Date / Time
No Known Allergies Allergy Verified 02/02/24 09:53
Home Medications
�Medication �Instructions �Recorded �Confirmed �Last Taken �Type
nitroglycerin 0.4 mg sublingual 0.4 mg sublingual [id number] PRN 03/02/19 02/02/24 Unknown Rx
tablet chest pain #25 tabs
atorvastatin 40 mg tablet 40 mg PO QPM High Cholesterol 06/01/21 02/02/24 02/01/24 History
ezetimibe 10 mg tablet 10 mg PO QPM High Cholesterol 06/01/21 02/02/24 02/01/24 History
losartan 25 mg tablet 25 mg PO DAILY Blood Pressure 06/01/21 02/02/24 02/02/24 History
pantoprazole 40 mg tablet,delayed 40 mg PO DAILY Gastrointestinal 06/04/23 02/02/24 02/02/24 History
release Issue
melatonin 10 mg tablet 10 mg PO HSPRN PRN sleep 06/07/23 02/02/24 Unknown History
metoprolol succinate 25 mg 25 mg PO DAILY 30 days #30 tabs 06/09/23 02/02/24 02/02/24 Rx
tablet,extended release 24 hr
empagliflozin 10 mg tablet 10 mg PO QPM Heart Failure 90 days 06/19/23 02/02/24 02/01/24 Rx
(Jardiance) #90 tabs
apixaban 5 mg tablet (Eliquis) 5 mg PO BID Blood Clot 11/07/23 02/02/24 02/02/24 History
Prevention/Tx
aspirin 81 mg chewable tablet 81 mg PO DAILY Blood Clot 02/02/24 02/02/24 02/02/24 History
(Children's Aspirin) Prevention/Tx
cyanocobalamin (vitamin B-12) 1,000 mcg PO DAILY Supplement 02/02/24 02/02/24 02/02/24 History
1,000 mcg tablet
Review of Systems
Vitals / Labs / Diagnostic Testing
Vital Signs
Temp Pulse Resp BP Pulse Ox
97.8 F 57 17 125/90 98
02/03/24 11:00 02/03/24 11:00 02/03/24 11:00 02/03/24 11:00 02/03/24 11:00
Lab Data
02/03/24 06:24
02/03/24 06:24
Diagnostic Testing:
Assessment
-
Assessment: This is a 73 year old male that presented on 02/01 for acute left facial and arm weakness and associated speech changes, found to have nonhemorrhagic infarcts in the right MCA territory, most prominent in the right parietal lobe.
Impression:
right carotid artery stenosis
s/p right carotid endarterectomy on 02/02
Conditions [employer]:
Hypertension.
Hyperlipidemia.
PAF.
GERD.
CAD/stent.
History of pericarditis.
BPH.
Umbilical hernia.
Glaucoma.
Shingles.
Colon polyp.
CATARINO on CPAP-AutoPap with average pressure 11-12 cm
Obesity.
Liver cyst.
Pancreatic lipomatosis.
Diverticulosis.
History CVA.
Carotid stenosis.
Cervical disc disease.
Tonsillectomy. Umbilical hernia repair.
Previous stroke which was bilateral in May 2023
EVAR October 2023.
Plan:
Postoperative surgical intensive care unit monitoring
Supplemental oxygen as needed
Incentive spirometry
Aspiration precautions
Neuro and vascular checks per protocol
Vascular surgery following-correspondence and operative notes reviewed
DVT prophylaxis
Early nutrition
Early mobilization

Documented by User: Jovan Jj MD 02/03/24 16:49
Medical History
-
History of Present Illness:
Mr Fred Sims is a 73 year old male that presented on 02/01 for acute left facial and arm weakness and associated speech changes, found to have nonhemorrhagic infarcts in the right MCA territory, most prominent in the right parietal lobe.
Seen by Neurology and [facility], candidate for revascularization in setting of R carotid artery stenosis
Received R carotid endarterectomy on 02/02
Seen at ICU in presence of his
C/o mild L eye soreness
Review of Systems
-
History Source: Patient
All other systems: Negative unless noted
EENT: Other (mild L eye soreness)
Cardiac: Other (incisional pain at R neck)
Physical Exam
-
HEENT: Normocephalic, Moist Mucous Membranes and Other (trace L conjunctival congestion)
Cardiovascular: Regular Rhythm, Peripheral Edema (n) and Calf Tenderness
Respiratory: Clear and Non-Labored Respirations
GI: Soft, Non Distended and Non Tender
Neurology: Awake, Oriented and Other (mild L facial weakness)
Skin: Warm
General: Respiratory Distress (n)
Assessment
-
Assessment:
Mr Fred Sims is a 73 year old male that presented on 02/01 for acute left facial and arm weakness and associated speech changes, found to have nonhemorrhagic infarcts in the right MCA territory, most prominent in the right parietal lobe.
Impression:
R carotid artery stenosis
s/p R carotid endarterectomy on 02/02
Conditions [employer]:
Hypertension.
Hyperlipidemia.
PAF.
GERD.
CAD/stent.
History of pericarditis.
BPH.
Umbilical hernia.
Glaucoma.
Shingles.
Colon polyp.
CATARINO on CPAP-AutoPap with average pressure 11-12 cm
Obesity.
Liver cyst.
Pancreatic lipomatosis.
Diverticulosis.
History CVA.
Carotid stenosis.
Cervical disc disease.
Tonsillectomy. Umbilical hernia repair.
Previous stroke which was bilateral in May 2023
EVAR October 2023.
Plan:
Postoperative surgical intensive care unit monitoring
Supplemental oxygen as needed
Incentive spirometry
Aspiration precautions
Neuro and vascular checks per protocol
Vascular surgery following-correspondence and operative notes reviewed
DVT prophylaxis
Early nutrition
Early mobilization
D/w Mr and Mrs Sims
D/w BATCH T[employer] CONTROLLER
Critical care time: 35 min
ATTENDING PHYSICIAN ATTESTATION:
(Initial Visit:)
I personally saw and evaluated the patient along with the Resident Dr Lock.
Discussed with Resident and discussed in rounds with MDT.
I agree with Resident�s findings and plan as documented in the resident�s note, which was edited by myself.
[2024-02-03 12:24] LABS: ACT-LR - POC 361 Seconds (116-155)
[2024-02-03 12:39] LABS: TSH Reflex To Free T4 3.04 uIU/ml (0.47-4.68)
[2024-02-03 12:43] LABS: Ferritin 15.7 ng/ml (17.9-464.0)
--- NOTE | 2024-02-03 12:45 | W.PN.HOSP.TC ---
Today's Communication/Plan
-
CEA today
ASA, plavix, statin
resume BP meds
Holding Eliquis
Assessment / Plan
Assessment / Plan
Physical Exam
General: Well Developed and Other (Dysarthria)
HEENT: Other (Left upper lip droop)
Respiratory: Clear
Cardiac: S1/S2 and Irregular Rhythm
GI: Non Tender
Rectal: No Maroon Stools
Genito-urinary: No costovertebral tender
Musculoskeletal: No Clubbing
Skin: Warm
Neuro: Alert, Oriented, AO x 3 and Other (dysarthria and left facial weakness, left arm drift and mild left arm ataxia)
Hematologic/Lymphatic: No Lymphadenopathy
Psych: Calm
73-year-old male with prior history of ischemic stroke, aortic aneurysm status postrepair, coronary artery disease, paroxysmal atrial fibrillation, hypertension, hyperlipidemia, hypertension, GERD, BPH, CATARINO now presents for acute left facial and arm
weakness associated speech changes, found to have nonhemorrhagic infarcts in the right MCA territory, most prominent in the right parietal lobe.
PLAN:
#CVA, appears embolic
#Right ICA stenosis
� Appreciate neurology, vascular recommendations
� N.p.o.
� Right CEA today
� Continue aspirin, Plavix, statin ( eventually we would stop clopidogrel and add back apixaban when felt safe from postoperative/surgical perspective)
� Hold apixaban
� Goal Normotension
� NIH scale
� Echocardiogram: EF 60 to 65%, no vegetations/thrombus noted
� Follow LDL 45; hemoglobin A1c - 6.1
� PT/OT/speech therapy
#History of persistent atrial fibrillation
Continue Toprol for rate control
#Primary hypertension
� resume bp meds
-goal normotension
#Abdominal aortic aneurysm
- EVAR on 11/07/[address] Peralta
-F/u outpatient
#DVT ppx
-SCDs, hold on anticoagulation at this time for concern of hemorrhagic conversion/OR tomorrow
-ctm for initiation
Total time spent on today's encounter was 52 minutes which included time spent in counseling the patient/family regarding diagnosis and treatment plan as listed above, goals of care, and symptom management. Case was discussed with nursing staff,
specialists, and care coordinators/case management. All labs and imaging personally reviewed by me. Remainder the time spent in detailed review of previous records, lab data, imaging, and other medical provider documentation.
Anticipated Discharge: > 48 hours
Subjective/Interval History
-
Date of Service: February 03, 2024
No acute events overnight
Objective Data
-
Labs:
Laboratory Results
02/03/24
06:24
WBC 6.9
Hgb 13.8
Hct 40.8
Plt Count 156
Sodium 137
Potassium 4.1
Chloride 104
Carbon Dioxide 27
BUN 14
Creatinine 0.9
Glucose 93
Calcium 9.1
Total Bilirubin 0.9
AST 23
ALT 20
Alkaline Phosphatase 73
Vital Signs:
Vital Signs
Temp Pulse Resp BP Pulse Ox
97.8 F 57 17 125/90 98
02/03/24 11:00 02/03/24 11:00 02/03/24 11:00 02/03/24 11:00 02/03/24 11:00
I&O
02/02/24 02/03/24 02/04/24
06:59 06:59 06:59
Intake Total 600 / 600
Output Total 200 / 200
Balance 400 / 400
Review of Systems
-
History Source: Patient
All other systems: Not reviewed unless documented
Data Reviewed
-
CT Scan: Image personally visualized and interpreted and Report Reviewed by me
Ultrasound: Image personally visualized and interpreted and Report Reviewed by me
MRI: Report Reviewed by me
Labs: Labs Reviewed by me
[2024-02-03 13:14] LABS: Folate 7.1 ng/ml (2.76-20); Vitamin B12 582 pg/ml (239-931)
[2024-02-03 13:19] LABS: ACT-LR - POC 274 Seconds (116-155)
--- NOTE | 2024-02-03 14:40 | W.IMMPOSTOP ---
Surgical Immed Post Op Note
-
Primary Surgeon: Dr. Umer Peralta III, MD
Assisting Surgeon: Dr. Buck Pierce MD, PhD (PGY-1)
Pre-op Diagnosis: Severe, symptomatic right carotid stenosis
Post-op Diagnosis: Severe, symptomatic right carotid stenosis
Procedure Performed: Right carotid endarterectomy with bovine patch angioplasty
Anesthesia Type: General
Specimen / Cultures: None
Estimated Blood Loss: 25cc
Complications: None
Operative Findings: The patient was brought to the OR and placed in the supine position. After placement of radial arterial line, neuromonitoring, and induction with anesthesia, ultrasound guidance was used to map the trajectory of the right common
carotid, bifurcation, and proximal internal and external carotid arteries. This was marked at the skin level. The patient was prepped and draped in usual sterile fashion. After incision, electrocautery and sharp dissection were used to expose the
right common carotid artery. After circumferential dissection, a blue vessel loop was passed around it for proximal control. Then we dissected and exposed the external carotid artery, superior thyroid artery, and internal carotid artery. Vessel
loops were passed around these for distal control. Heparin was administered and clamp were placed. Arteriotomy was made on the right common carotid artery, it was extended to the internal carotid with miner scissors. Endarterectomy was performed
with a freer. The wound bed was irrigated and a piece of bovine pericardial patch was brought to the field. A running 6-0 prolene suture was used for patch angioplasty. After the patch was sewn in, the clamps were removed and doppler demonstrated
robust signal in the internal and external carotid arteries. Hemostasis was achieved in the wound bed and the wound was closed in suture layers and skin glue on the surface of the skin. At the conclusion of the case, the patient demonstrated good
motor strength in right arm, weaker motor strength in left arm, similar motor strength in both lower extremities. The left upper extremity was slightly weaker than at baseline. The patient also had a slight left sided facial droop and limited left
tongue mobility, which is consistent with preop baseline neuro exam. The patient was transported to the PACU in stable condition.
[2024-02-03] MEDS: SUBLIMAZE 25 MCG IV ×2 (14:49→14:58)
[2024-02-03 14:54] LABS: INR 1.26; PT 15.6 Sec (11.4-14.6)
[2024-02-03 15:01] LABS: Blood Urea Nitrogen 13 mg/dl (9-20); Calcium 8.4 mg/dl (8.4-10.2); Carbon Dioxide 24 mmol/L (22-30); Chloride 106 mmol/L (98-107); Estimated Creatinine Clearance 82 ml/min; Glucose 110 mg/dl (70-99); Potassium 3.9 mmol/L (3.5-5.1); Sodium 136 mmol/L (135-145); eGFR > 60.00
[2024-02-03] MEDS: NSS 1000 IV (15:24)
[2024-02-03] MEDS: JARDIANCE 10 MG PO (18:09)
[2024-02-03] MEDS: TYLENOL 650 MG PO (18:09)
[2024-02-03] MEDS: LIPITOR 40 MG PO (18:09)
[2024-02-03] MEDS: ZETIA 10 MG PO (18:09)
--- NOTE | 2024-02-03 18:24 | PTCARENOTE ---
Pt received to ICU bed 3369 from PACU. Pt AAOx3. C/o eyes burning. Tylenol given. Left sided facial droop and very slightly slurred speech. Left arm and leg only slightly weaker than right. Pt unable to void. Bladder scan 500ml. Pt refusing
straight cath at this time. Stated he will try again shortly. Right radial a-line intact. IVF infusing. at bedside.
--- NOTE | 2024-02-03 18:37 | OR.RPT ---
Operative Report
Operative Report
Date of Operation: 02/03/2024
Pre Op Diagnosis: Symptomatic right carotid artery stenosis
Post Op Diagnosis: Symptomatic right carotid artery stenosis
Procedure: RIGHT carotid endarterectomy with patch angioplasty using bovine pericardium
Surgeon: Umer Peralta III, MD
Die Sinker Apprentice: Buck Pierce MD PhD, PGY1
Anesthesia: General
Complications: None
History and Indications for Procedure: 73-year-old male with symptomatic right carotid artery stenosis
Procedure in Detail: Fred Douglass was correctly identified and placed supine on the operating table. After adequate induction of anesthesia the right neck was positioned, prepped and draped in the usual sterile fashion. Preoperative antibiotics
were administered. A timeout procedure was performed with the nursing and anesthesia staff confirming the patients identity as well as the nature and laterality of the procedure.
The carotid bifurcation was marked with ultrasound at the beginning of the case. The incision was planned accordingly. An incision was made along the anterior border of the right sternocleidomastoid muscle. Electrocautery was used to divide the
subcutaneous tissue and platysma. The carotid sheath was entered with sharp dissection. The internal jugular vein was retracted laterally. The vagus nerve was identified and protected throughout the case. The common carotid artery was identified at
the base of this incision and carefully encircled with a vessel loop. The patient was systemically heparinized. The dissection was continued distally towards the carotid bifurcation. The facial vein was skeletonized, ligated and divided between ties
and clips. The proximal external carotid artery was encircled with a vessel loop. The distal internal carotid artery was encircled with a vessel loop at a soft spot on the artery beyond the plaque. The hypoglossal nerve was identified and protected.
The internal vessel loop was secured followed by the common and external. An arteriotomy was made on the distal common carotid artery with an 11-blade. This was extended proximally and distally with Jeffers scissors. The arteriotomy was extended
distally through the plaque to an area of normal appearing internal carotid artery. The distal vessel loop was replaced with a short tip hockey-stick type vascular clamp. An endarterectomy was performed with a Sun elevator in the standard
fashion. The proximal extent of the plaque was transected with scissors. The distal end of the plaque in the internal carotid artery feathered very nicely with no distal intimal flap identified. The plaque extending into the external carotid artery
was everted. Once the plaque was fully removed the endarterectomy plane was irrigated with heparinized saline and any loose fronds of tissue were removed. A pre-cut piece of bovine pericardium was sewn in place using a running 6-0 Prolene suture.
Prior to the completion of the patch the common carotid was allowed to forward bleed and the external was allowed to back bleed. The area under the patch was irrigated with heparinized saline to remove any potential thrombus or debris. The
anastomosis was completed.
The external vessel loop was released first, followed by the common and then the internal. There was an excellent pulse in the distal internal carotid artery. An excellent quality Doppler signal in the distal internal carotid artery was also
confirmed. The patch suture line was closely inspected for hemostasis and was achieved. Protamine was administered. Hemostasis was achieved in the wound bed. The wound was irrigated with saline solution.
The wound was then closed in layers. Sterile dressings were applied. The patient awoke from anesthesia with no immediate neuro deficits and was taken to the PACU in stable condition.
Attestation: I was present and responsible for the entire procedure
Signed:
Umer Peralta III, MD
[facility] Surgery
[phone] (qgnc)
--- NOTE | 2024-02-03 20:00 | PTCARENOTE ---
Right CEA today, NIH 3, PERRLA 2, left sided weakness 4/5 movement. Eye drops administered as requested, as ordered. Incision site sealed with surgical glue, ecchymosis noted. Ice pack offered. Afebrile 99.1, sinus rhythm. Art line zeroed. NSS as
ordered. Room air, lungs clear. Tolerating clear liquid diet. Voiding in urinal.
[2024-02-03] MEDS: REFRESH EYE DROPS (PF) 1 DROPS OPHTH (21:28)
[2024-02-03] MEDS: MELATONIN 5 MG PO (21:29)
[2024-02-03] MEDS: ROXICODONE 5 MG PO (23:04)
--- NOTE | 2024-02-03 23:55 | PTCARENOTE ---
Pt alert oriented at this time,physical assessment preformed,pt turns with ease.VS stable SB hospital monitor afebrile.Pt reported pain to right neck incision,medicated with Roxycodone 5mg with + results.IVF maintained at 80mls hour.NIH preformed
without difficulty 1 with this assessment.Close observation ongoing throughout the night.
[2024-02-04] VITALS (10 sets, daily range): BP systolic 123–171; BP diastolic 64–82; PULSE 63; O2SAT 96
[2024-02-04] MEDS: NSS 1000 IV (02:00)
--- NOTE | 2024-02-04 04:33 | DOWNTIME ---
There was a [employer]er Downtime on 02/04/2024 from 0100 to 02/04/2024 at 0337. Downtime documentation of patient's care, including medication administrations, has been reconciled in the electronic record per guidelines. Refer to the
patient's paper chart under the miscellaneous tab to see printed paper medication records and downtime forms.
[2024-02-04 05:15] LABS: Hematocrit 37.5 % (39.0-52.0); Hemoglobin 12.6 g/dL (13.0-18.0); Mean Corp Hgb Conc. 33.6 g/dL (33.0-37.0); Mean Corpuscular Volume 92.4 fL (80.0-94.0); Mean Platelet Volume 10.1 fL (7.4-10.4); Platelet Count 145 10^3/uL (130-400); Red Blood Cell Count 4.06 10^6/uL (4.70-6.10); Red Cell Dist. Width 13.2 % (11.5-14.5)
[2024-02-04] MEDS: ROXICODONE 5 MG PO ×3 (05:22→19:54)
[2024-02-04 05:30] LABS: APTT 29.5 Sec (23.4-35.0); INR 1.19; PT 14.9 Sec (11.4-14.6)
[2024-02-04 05:58] LABS: ALT (SGPT) 18 U/L (0-50); AST (SGOT) 23 U/L (17-59); Albumin 3.5 g/dl (3.5-5.0); Alkaline Phosphatase 69 U/L (38-126); Blood Urea Nitrogen 16 mg/dl (9-20); Calcium 8.9 mg/dl (8.4-10.2); Carbon Dioxide 20 mmol/L (22-30); Chloride 108 mmol/L (98-107); Estimated Creatinine Clearance 82 ml/min; Glucose 98 mg/dl (70-99); Potassium 4.6 mmol/L (3.5-5.1); Sodium 135 mmol/L (135-145); Total Bilirubin 0.6 mg/dl (0.2-1.3); Total Protein 5.8 g/dl (6.3-8.2); eGFR > 60.00
--- NOTE | 2024-02-04 07:22 | W.PN.NEURO.1 ---
Today's Communication / Plan
-
-Aspirin and clopidogrel for now
-When okay from post surgical perspective stop clopidogrel and resume Apixaban. From stroke perspective acceptable for Apixaban by 02/04.
-Goal normotension
-Speech, PT/OT
-NIH and neurologic checks
Will follow
Neuro Assessment/Plan
Assessment
The patient is a 73-year-old right-handed male with a PMH of previous ischemic stroke 05/2023, aortic aneurysm status post repair, CAD presenting to hospital with acute onset of left facial and arm weakness along with speech change.
Patient woke up this morning around 630 without any noticeable symptoms and had onset of the above symptoms at approximately 730 and presented to the ED via ambulance as a stroke alert. Patient does report compliance with apixaban recently and his
last dose was this morning. No missed doses at all recently no recent illnesses no head injuries. Patient does also take aspirin 81 mg daily. He was not a candidate for TNK/IAT due to apixaban usage and no LVO on imaging.
Patient had had successful endovascular repair of aortic aneurysm in early November here.
He had a ischemic stroke mostly in the right MCA territory but also small left MCA ischemic stroke in May 2023, he did have a successful stay at acute rehabilitation following this and was discharged home in early June 2023. He reports no
significant long-lasting deficits from the ischemic stroke.
-CTA head/neck 02/02/24: No findings to suggest proximal intracranial arterial significant stenosis or vessel cut off, including M1 and M2 segments of the middle cerebral arteries bilaterally. Atherosclerotic changes of the carotid bifurcation and
proximal internal carotid artery bilaterally, right greater than left, difficult to measure in light of tortuosity, calcific plaque soft plaque. Atherosclerotic narrowing of the proximal right internal carotid artery likely represents a greater than
70% stenosis and likely less than 50% stenosis of the proximal left internal carotid artery.
-MRI brain 02/03/24: Scattered tiny nonhemorrhagic infarcts in the right MCA territory, most prominent superiorly in the right parietal lobe. Less involved than on the prior examination May 2023. Most likely embolic etiology.
-TTE 02/02/24: EF 60-65%. No obvious thrombus seen.
I. Acute R MCA territory scattered ischemic stroke; etiology likely due to R ICA 70% stenosis.
II. Afib, compliance with apixaban.
III. Old R MCA and small L MCA territory ischemic stroke 05/2023.
Subjective/Objective
Subjective Data
Date of Service: February 04, 2024
No acute events, right neck sore, no worsenening in stroke symptoms
Objective Data
Vital Signs
Temp Pulse Resp BP Pulse Ox
98.2 F 57 12 137/64 97
02/04/24 04:00 02/04/24 06:00 02/04/24 06:00 02/04/24 00:00 02/04/24 06:00
Lab Results
02/04/24 05:09
02/04/24 05:09
PT 14.9 Sec (11.4-14.6) H 02/04/24 05:09
INR 1.19 02/04/24 05:09
APTT 29.5 Sec (23.4-35.0) 02/04/24 05:09
Sodium 135 mmol/L (135-145) 02/04/24 05:09
Potassium 4.6 mmol/L (3.5-5.1) 02/04/24 05:09
BUN 16 mg/dl (9-20) 02/04/24 05:09
Glucose 98 mg/dl (70-99) 02/04/24 05:09
Calcium 8.9 mg/dl (8.4-10.2) 02/04/24 05:09
LDL Cholesterol, Calc 45 mg/dl 02/03/24 06:24
Vitamin B12 582 pg/ml (239-931) 02/03/24 06:24
Patient Allergies
No Known Allergies Allergy (Verified 02/02/24 09:53)
LDL Level: <70, no statin needed
Review of Systems
-
History Source: Patient
All other systems: Reviewed and negative
Constitutional: No Symptoms
EENT: No Symptoms Reported
Respiratory: No Symptoms
Cardiac: No Symptoms
Abdomen/GI: No Symptoms
Genitourinary: No Symptoms
Musculoskeletal: No Symptoms
Skin: No Symptoms
Neuro: Weakness
Endocrine: No Symptoms
Hematologic / Lymphatic: No Symptoms
Allergy / Immunology: No Symptoms
Physical Exam
-
General: Comfortable
Eyes: No Ptosis
HEENT: Other (Right neck wound clean dry intact)
Neck: No Bruits Bilaterally
Respiratory: Clear to Auscultation
Cardiac: Regular Rhythm
GI: Normal Bowel Sounds
Skin: Unremarkable
Extremities: No Clubbing
Extended Neurological Exam
Mood & Affect: Mood Unremarkable and Affect Unremarkable
Attention Span & Concentration: Awake, Alert and Interactive
Memory: Unremarkable
Tremor: Hand Tremor Absent
Speech: Dysarthric
Cranial Nerve II: Left Eye: Pupillary Reactivity Unremarkable and Pupillary Size Unremarkable
Cranial Nerve II: Right Eye: Pupillary Reactivity Unremarkable and Pupillary Size Unremarkable
Cranial Nerves III, IV, : Extraocular Movement: Extraocular Movement Full in all Directions
Cranial Nerve VII: Facial Symmetry: Other (Left facial weakness)
Muscle Strength, Overall: Other (Left arm 4/5 weakness shoulder abduction arm flexion)
Pronator Drift: Drift in Left Upper Extremity
Touch Sensation: Unremarkable
Data Reviewed
-
CT-A: Report Reviewed and Image Reviewed
CT Head: Report Reviewed and Image Reviewed
MRI Head: Report Reviewed and Image Reviewed
--- NOTE | 2024-02-04 07:31 | W.PN.INTV ---
Today's Communication / Plan
Recommendations
Asp precs
Deline
No objection to telem today, will sign off then
Assessment
-
Assessment:
Mr Fred Sims is a 73 year old male that presented on 02/01 for acute left facial and arm weakness and associated speech changes, found to have nonhemorrhagic infarcts in the right MCA territory, most prominent in the right parietal lobe.
Impression:
R carotid artery stenosis
Nonhemorrhagic infarcts in the right MCA territory, most prominent in the right parietal lobe (MRI brain 02-01)
s/p R carotid endarterectomy on 02/02
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
Hypertension.
Hyperlipidemia.
PAF.
GERD.
CAD/stent.
History of pericarditis.
BPH.
Umbilical hernia.
Glaucoma.
Shingles.
Colon polyp.
CATARINO on CPAP-AutoPap with average pressure 11-12 cm
Obesity.
Liver cyst.
Pancreatic lipomatosis.
Diverticulosis.
History CVA.
Carotid stenosis.
Cervical disc disease.
Tonsillectomy. Umbilical hernia repair.
Previous stroke which was bilateral in May 2023
EVAR October 2023.
Plan:
Postoperative surgical intensive care unit monitoring completed
Supplemental oxygen as needed
Incentive spirometry
Aspiration precautions
Neuro and vascular checks per protocol
Vascular surgery following-correspondence and operative notes reviewed
TTE 02-01: LVEF 60-65, no other significant findings or change c/w May 2023
DVT prophylaxis
Early nutrition
Early mobilization
D/w Mr and Mrs Sims
D/w POUNCER and MDT
Disposition per Vas Sx
No pulm objection for transfer to telemetry, will sign off then
Subjective Dataa
Subjective Data
Date of Service:
Date of Service: February 04, 2024
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
Subjective:
No major events reported overnight
Has remained hemodynamically and respiratory briceño stable
Is been out of bed to the chair
Seen by speech, no evidence of dysphagia, continue on regular solids and thin liquids
Denies any major complaints, remains on room air
Review of Systems
General: Fever (n), Sweats (n), Chills and Satisfactory Appetite
HEENT: Epistaxis (n) and Dysphagia (n)
Cardiopulmonary: Dyspnea (n), Cough (n), Wheezing (n) and Chest Pain (n)
GI: Abdominal Pain (n), Nausea (n) and Vomiting (n)
Neuro: Weakness (n)
Objective Data
Data Reviewed
Vital Signs / I&O / Oxygen:
Vital Signs
Temp Pulse Resp BP Pulse Ox
98.2 F 57 12 137/64 97
02/04/24 04:00 02/04/24 06:00 02/04/24 06:00 02/04/24 00:00 02/04/24 06:00
Intake and Output
02/03/24 02/04/24 02/05/24
06:59 06:59 06:59
Intake Total 600 / 600 1550 / 1550
Output Total 200 / 200 1900 / 1900
Balance 400 / 400 -350 / -350
SaO2 97
Nasal Cannula flow liters per 2
minute
Physical Exam
General: Comfortable
HEENT: Normocephalic and Moist Mucous Membranes
Cardiovascular: Regular Rhythm, Murmur (n), Peripheral Edema (n) and Calf Tenderness (n)
Respiratory: Clear, Non-Labored Respirations and Stridor (n)
GI: Soft, Non Distended and Non Tender
Neurology: Awake, AO x 3 and Other (L sided weakness and facial droop )
Skin: Warm
Labs/Micro/Reports
Lab Data
02/04/24 05:09
02/04/24 05:09
Laboratory Results
02/03/24 02/04/24
14:34 05:09
PT 15.6 H 14.9 H
INR 1.26 1.19
APTT 29.0 29.5
--- NOTE | 2024-02-04 07:45 | PTCARENOTE ---
Assumed care of patient. Pt rec'd A&Ox3. Pleasant. NIHSS of 3 noted. Left facial droop, dysarthria, and left arm/hand grasp weakness noted as deficits. Denies pain at present. Able to JACOB's. S1 S2 reg w/ sinus marga on monitor. +PP. No
edema. SCD's on. On R/A...sats 99%. Lungs clear. Encouraged to cough and deep breath. Abdomen round...+BS. Takes po meds w/o issue. Diet advanced per vascular. Voids yellow in urinal. 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 18P RH INT capped. 20P LH w/ IVF's infusing. Right radial vargas...flushed and zeroed. VS obtained. Call wolf within reach. Will continue to monitor.
[2024-02-04] MEDS: TOPROL XL 25 MG PO (07:55)
[2024-02-04] MEDS: ASPIR LOW (ENTERIC COATED) 81 MG PO (07:56)
[2024-02-04] MEDS: PLAVIX 75 MG PO (07:56)
[2024-02-04] MEDS: HEPARIN 5000 UNITS SC ×2 (07:56→19:55)
[2024-02-04] MEDS: COZAAR 25 MG PO (07:56)
[2024-02-04] MEDS: PROTONIX 40 MG PO (07:56)
--- NOTE | 2024-02-04 08:18 | W.PN.VS ---
Addendum entered and electronically signed by Austen Sarkar MD 02/04/24 08:55:
Seen and examined with RUBY Jessica. Agree with findings as noted below. No events overnight. Right neck incision is clean dry and intact. No hematoma. Neurologically at baseline. Moves all extremities well. Stable left upper extremity weakness.
Tongue is midline. Plan/as discussed and noted below.
Original Note:
Today's Communication / Plan
-
Patient seen and examined at bedside with Dr. Austen Sarkar, below plan reviewed with attending
Assessment/Plan
-
Assessment: 73-year-old male with symptomatic carotid stenosis POD #1 right carotid endarterectomy with bovine pericardial patch angioplasty
Plan:
DC arterial line
OOB to chair with progression ambulation as tolerated, physical therapy following
Advance diet to low-cholesterol
Continue DAPT for stroke protocol
If patient continues to progress well with tolerating ambulation and p.o. intake can be downgraded to telemetry this afternoon
Subjective Data
-
Date of Service: February 04, 2024
Patient seen and examined at bedside, offers no complaints. Denies headache, nausea, vomiting, chills, and fever. Reports unchanged from preop left-sided weakness. Denies difficulty swallowing, tolerating p.o. liquids.
Objective Data
-
Vital Signs
Temp Pulse Resp BP Pulse Ox
98.2 F 63 12 160/64 97
02/04/24 04:00 02/04/24 07:56 02/04/24 06:00 02/04/24 07:56 02/04/24 06:00
Intake and Output
02/03/24 02/04/24 02/05/24
06:59 06:59 06:59
Intake Total 600 / 600 1550 / 1550
Output Total 200 / 200 1900 / 1900
Balance 400 / 400 -350 / -350
Intake:
Oral fluids 600 / 600 120 / 120
IV fluids (Total) 1430 / 1430
Normosol 150 / 150
Nss 1,000 ml @ 80 mls/hr IV . 1280 / 1280
[id number] [facility] Rx#:[id number]
Output:
Urine, Voided 200 / 200 1900 / 1900
Other:
Number of approximated SMALL 2
amounts of urine
Number of approximated MODERATE 1
amounts of urine
Lab Results
02/04/24 05:09
02/04/24 05:09
Calcium 8.9 mg/dl (8.4-10.2) 02/04/24 05:09
Magnesium 1.8 mg/dl (1.6-2.3) 02/03/24 06:24
Total Bilirubin 0.6 mg/dl (0.2-1.3) 02/04/24 05:09
AST 23 U/L (17-59) 02/04/24 05:09
ALT 18 U/L (0-50) 02/04/24 05:09
Alkaline Phosphatase 69 U/L (38-126) 02/04/24 05:09
Total Protein 5.8 g/dl (6.3-8.2) L 02/04/24 05:09
Albumin 3.5 g/dl (3.5-5.0) 02/04/24 05:09
Physical Exam
-
AAOx3, NAD
Left-sided facial droop unchanged from preoperative, tongue midline, right-sided surgical neck incision CDI, scant area of edema, all surrounding areas soft, incision well-approximated, Exofin glue intact
No tachycardia
No dyspnea
ABD soft, nontender, nondistended
Left upper extremity with scant drift, and decreased strength at hand grasp, NIH remains at 2, patient can move bilateral upper extremities and lower extremity spontaneously and to command
--- NOTE | 2024-02-04 08:30 | PTCARENOTE ---
IVF's capped. Right radial vargas d/c'd. OOB to chair w/ assist x 1.
--- NOTE | 2024-02-04 09:00 | PTOTSP ---
Speech Language Pathology
Pt seen for dysphagia tx. Improved speech intelligibility noted, although this was not directly addressed during session, as pt was eating. Seen with regular solids and thin liquids. Intermittent labial leakage on L with saliva and P.O. Pt was
sensate to this. Intermittent pocketing on L, but pt was also sensate to this. He reported he has been clearing L pocketing with finger, as lingual sweep has been ineffective. Adequately clearing pocketing during session. No overt signs of
aspiration.
Pt remains on room air, and WBC is 10.0. Pt does not note any difficulty with swallowing, although he did endorse R sided tenderness post CEA completed yesterday.
Recommend:
(1) Continue regular solids/thin liquids
(2) Aspiration precautions: sit upright, slow rate, check for pocketing on L
(3) Meds whole in puree
(4) Will consider VSE if any difficulty noted with P.O. intake
(5) STATION USHER to continue to follow
--- NOTE | 2024-02-04 11:06 | CM ---
contract administration manager reviewed patient's chart and met with patient and patient was transferred to ICU. Per patient he lives with his spouse in a one story home, was independent with adl's and ambulation, no dme, patient drives, patient has a prescription
plan and patient uses [facility] pharmacy, will wait on updated PT notes to see if patient needs have charged.
Plan; Home with spouse. Will wait on updated PT notes.
--- NOTE | 2024-02-04 12:00 | PTCARENOTE ---
No major changes in physical assessment since am. VS obtained. To be seen by PT/OT. Call wolf within reach. Will continue to monitor.
--- NOTE | 2024-02-04 12:57 | W.PN.HOSP.TC ---
Today's Communication/Plan
-
monitor on tele
pain control
pt/ot/st
dapt, statin
Assessment / Plan
Assessment / Plan
Physical Exam
General: Well Developed and Other (Dysarthria)
HEENT: Other (Left upper lip droop) Right neck incision is clean dry and intact.
Respiratory: Clear
Cardiac: S1/S2 and Irregular Rhythm
GI: Non Tender
Rectal: No Maroon Stools
Genito-urinary: No costovertebral tender
Musculoskeletal: No Clubbing
Skin: Warm
Neuro: Alert, Oriented, AO x 3 and Other ( left facial weakness, left arm drift and mild left arm ataxia)
Hematologic/Lymphatic: No Lymphadenopathy
Psych: Calm
73-year-old male with prior history of ischemic stroke, aortic aneurysm status postrepair, coronary artery disease, paroxysmal atrial fibrillation, hypertension, hyperlipidemia, hypertension, GERD, BPH, CATARINO now presents for acute left facial and arm
weakness associated speech changes, found to have nonhemorrhagic infarcts in the right MCA territory, most prominent in the right parietal lobe.
PLAN:
#CVA, appears embolic
#Right ICA stenosis
� Appreciate neurology, vascular recommendations
� POD #1 right carotid endarterectomy with bovine pericardial patch angioplasty
� Continue aspirin, Plavix, statin ( eventually we would stop clopidogrel and add back apixaban when felt safe from postoperative/surgical perspective)
� Hold apixaban
� Goal Normotension
� NIH scale
� Echocardiogram: EF 60 to 65%, no vegetations/thrombus noted
� Follow LDL 45; hemoglobin A1c - 6.1
� PT/OT/speech therapy
#History of persistent atrial fibrillation
Continue Toprol for rate control
#Primary hypertension
� resume bp meds
-goal normotension
#Abdominal aortic aneurysm
- EVAR on 11/07/[address] Peralta
-F/u outpatient
#DVT ppx
-SCDs, hold on anticoagulation at this time for concern of hemorrhagic conversion/OR tomorrow
-ctm for initiation
Total time spent on today's encounter was 53 minutes which included time spent in counseling the patient/family regarding diagnosis and treatment plan as listed above, goals of care, and symptom management. Case was discussed with nursing staff,
specialists, and care coordinators/case management. All labs and imaging personally reviewed by me. Remainder the time spent in detailed review of previous records, lab data, imaging, and other medical provider documentation.
Anticipated Discharge: 24 - 48 hours
Subjective/Interval History
-
Date of Service: February 04, 2024
Tolerated procedure well, no acute events. Sitting in bed comfortably
Objective Data
-
Labs:
Laboratory Results
02/04/24
05:09
WBC 10.0
Hgb 12.6 L
Hct 37.5 L
Plt Count 145
PT 14.9 H
INR 1.19
APTT 29.5
Sodium 135
Potassium 4.6
Chloride 108 H
Carbon Dioxide 20 L
BUN 16
Creatinine 0.8
Glucose 98
Calcium 8.9
Total Bilirubin 0.6
AST 23
ALT 18
Alkaline Phosphatase 69
Vital Signs:
Vital Signs
Temp Pulse Resp BP Pulse Ox
98.4 F 72 16 146/69 99
02/04/24 11:07 02/04/24 12:15 02/04/24 12:15 02/04/24 11:00 02/04/24 11:45
I&O
02/03/24 02/04/24 02/05/24
06:59 06:59 06:59
Intake Total 600 / 600 1550 / 1630 560 / 560
Output Total 200 / 200 1900 / 1900 450 / 450
Balance 400 / 400 -350 / -270 110 / 110
Review of Systems
-
History Source: Patient
All other systems: Not reviewed unless documented
Data Reviewed
-
CT Scan: Image personally visualized and interpreted and Report Reviewed by me
Ultrasound: Image personally visualized and interpreted and Report Reviewed by me
MRI: Report Reviewed by me
Labs: Labs Reviewed by me
--- NOTE | 2024-02-04 16:00 | PTCARENOTE ---
Pt reassessed...no major changes. VS documented. Pt currently sleeping without issue. Call wolf within reach. Will continue to monitor.
[2024-02-04] MEDS: ZETIA 10 MG PO (17:14)
[2024-02-04] MEDS: LIPITOR 40 MG PO (17:14)
[2024-02-04] MEDS: JARDIANCE 10 MG PO (17:14)
--- NOTE | 2024-02-04 17:30 | PTCARENOTE ---
Report called to [address] [place] [address]. Pt to transfer to Room 2126. Belongings packed and pt will transfer in wheelchair.
--- NOTE | 2024-02-04 18:32 | PTCARENOTE ---
Received pt from ICU with ICU nurse at bedside, VSS, pt resting comfortably in bed with at bedside.
[2024-02-04] MEDS: MELATONIN 5 MG PO (21:24)
[2024-02-05 03:03] VITALS: BP 146/80
[2024-02-05] MEDS: ROXICODONE 5 MG PO (06:16)
[2024-02-05 06:57] LABS: Hematocrit 40.6 % (39.0-52.0); Hemoglobin 13.3 g/dL (13.0-18.0); Mean Corp Hgb Conc. 32.8 g/dL (33.0-37.0); Mean Corpuscular Hgb 30.7 pg (27.0-31.0); Mean Corpuscular Volume 93.8 fL (80.0-94.0); Mean Platelet Volume 10.4 fL (7.4-10.4); Platelet Count 152 10^3/uL (130-400); Red Blood Cell Count 4.33 10^6/uL (4.70-6.10); Red Cell Dist. Width 13.2 % (11.5-14.5); White Blood Cell Count 8.8 10^3/uL (4.8-10.8)
[2024-02-05 07:08] VITALS: BP 150/63
--- NOTE | 2024-02-05 07:18 | W.PN.HOSP.TC ---
Addendum entered and electronically signed by Darryn Eli MD 02/05/24 15:28:
[id number]
Original Note:
Today's Communication/Plan
-
pt/ot/st
asa, statin. resume Eliquis; stop plavix
Resume BP meds
F/u PCP, Vascular, Neuro outpatient
Assessment / Plan
Assessment / Plan
Physical Exam
General: Well Developed and Other (Dysarthria)
HEENT: Other (Left upper lip droop) Right neck incision is clean dry and intact.
Respiratory: Clear
Cardiac: S1/S2 and Irregular Rhythm
GI: Non Tender
Rectal: No Maroon Stools
Genito-urinary: No costovertebral tender
Musculoskeletal: No Clubbing
Skin: Warm
Neuro: Alert, Oriented, AO x 3 and Other ( left facial weakness, left arm drift and mild left arm ataxia)
Hematologic/Lymphatic: No Lymphadenopathy
Psych: Calm
73-year-old male with prior history of ischemic stroke, aortic aneurysm status postrepair, coronary artery disease, paroxysmal atrial fibrillation, hypertension, hyperlipidemia, hypertension, GERD, BPH, CATARINO now presents for acute left facial and arm
weakness associated speech changes, found to have nonhemorrhagic infarcts in the right MCA territory, most prominent in the right parietal lobe.
PLAN:
#CVA, appears embolic
#Right ICA stenosis
� Appreciate neurology, vascular recommendations
� POD #2 right carotid endarterectomy with bovine pericardial patch angioplasty
� Continue aspirin, stati; Stop plavix, switch back to Eliquis; okay from surgical and vascular standoint as patient has had hx of cva with afib
� Goal Normotension
� NIH scale
� Echocardiogram: EF 60 to 65%, no vegetations/thrombus noted
� Follow LDL 45; hemoglobin A1c - 6.1
� PT/OT/speech therapy
#History of persistent atrial fibrillation
Continue Toprol for rate control
#Primary hypertension
� resume bp meds
-goal normotension
#Abdominal aortic aneurysm
- EVAR on 11/07/[address] Peralta
-F/u outpatient
#DVT ppx
More than 30 minutes spent in discharge including
Final examination of the patient
Summarizing hospital stay
Instructions for continuing care to all relevant caregivers
Preparation of discharge records, prescriptions, and referral forms
Total time spent (35 in minutes):
Anticipated Discharge: Today
Subjective/Interval History
-
Date of Service: February 05, 2024
doing well, no acute changes overnight
Objective Data
-
Labs:
Laboratory Results
02/05/24
06:31
WBC Pending
Hgb Pending
Hct Pending
Plt Count Pending
Sodium Pending
Potassium Pending
Chloride Pending
Carbon Dioxide Pending
BUN Pending
Creatinine Pending
Glucose Pending
Calcium Pending
Total Bilirubin Pending
AST Pending
ALT Pending
Alkaline Phosphatase Pending
Vital Signs:
Vital Signs
Temp Pulse Resp BP Pulse Ox
98.5 F 58 18 150/63 94
02/05/24 07:08 02/05/24 07:08 02/05/24 07:08 02/05/24 07:08 02/05/24 07:08
I&O
02/04/24 02/05/24 02/06/24
06:59 06:59 06:59
Intake Total 1550 / 1630 1280 / 1280
Output Total 1900 / 1900 1550 / 1550
Balance -350 / -270 -270 / -270
Review of Systems
-
History Source: Patient
All other systems: Not reviewed unless documented
Data Reviewed
-
CT Scan: Image personally visualized and interpreted and Report Reviewed by me
Ultrasound: Image personally visualized and interpreted and Report Reviewed by me
MRI: Report Reviewed by me
Labs: Labs Reviewed by me
[2024-02-05] MEDS: PROTONIX 40 MG PO (08:21)
[2024-02-05] MEDS: ASPIR LOW (ENTERIC COATED) 81 MG PO (08:21)
[2024-02-05] MEDS: TOPROL XL 25 MG PO (08:21)
[2024-02-05] MEDS: COZAAR 25 MG PO (08:22)
[2024-02-05] MEDS: PLAVIX 75 MG PO (08:22)
[2024-02-05] MEDS: HEPARIN 5000 UNITS SC (08:22)
[2024-02-05 09:36] VITALS: BP 124/68; PULSE 71; O2SAT 96
[2024-02-05 09:54] LABS: ALT (SGPT) 17 U/L (0-50); AST (SGOT) 23 U/L (17-59); Albumin 3.9 g/dl (3.5-5.0); Alkaline Phosphatase 79 U/L (38-126); Blood Urea Nitrogen 16 mg/dl (9-20); Calcium 9.1 mg/dl (8.4-10.2); Carbon Dioxide 23 mmol/L (22-30); Chloride 105 mmol/L (98-107); Estimated Creatinine Clearance 66 ml/min; Glucose 99 mg/dl (70-99); Potassium 4.1 mmol/L (3.5-5.1); Sodium 137 mmol/L (135-145); Total Bilirubin 0.6 mg/dl (0.2-1.3); Total Protein 6.3 g/dl (6.3-8.2); eGFR > 60.00
[2024-02-05] MEDS: TYLENOL 650 MG PO (10:45)
[2024-02-05] MEDS: SENOKOT-S 1 TABLET PO (11:18)
[2024-02-05 11:41] VITALS: BP 128/74
--- NOTE | 2024-02-05 14:22 | W.DS.TRANS ---
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
-
Discharge Instructions:
Discharge Diagnosis/Procedures Acute R MCA territory scattered ischemic stroke;
etiology likely due to R ICA 70% stenosis.
Diet Low Cholesterol,Low Fat
Activity As tolerated
Instructions:
Stand-Alone Forms: DC Instr - Vascular OR
Changes to Home Medications: Yes
Discharge Medications:
DC Medications w/original date entered in [employer]
nitroglycerin 0.4 mg sublingual tablet 0.4 mg sublingual [id number] PRN chest pain #25 tabs 03/02/19
atorvastatin 40 mg tablet 40 mg PO QPM High Cholesterol 06/01/21
ezetimibe 10 mg tablet 10 mg PO QPM High Cholesterol 06/01/21
losartan 25 mg tablet 25 mg PO DAILY Blood Pressure 06/01/21
pantoprazole 40 mg tablet,delayed release 40 mg PO DAILY Gastrointestinal Issue 06/04/23
melatonin 10 mg tablet 10 mg PO HSPRN PRN sleep 06/07/23
metoprolol succinate 25 mg tablet,extended release 24 hr 25 mg PO DAILY 30 days #30 tabs 06/09/23
empagliflozin 10 mg tablet (Jardiance) 10 mg PO QPM Heart Failure 90 days #90 tabs 06/19/23
apixaban 5 mg tablet (Eliquis) 5 mg PO BID Blood Clot Prevention/Tx 11/07/23
cyanocobalamin (vitamin B-12) 1,000 mcg tablet 1,000 mcg PO DAILY Supplement 02/02/24
acetaminophen 325 mg tablet 650 mg (2 x 325 mg) PO Q4HPRN PRN mild pain/ fever>100.5F #120 tabs 02/05/24
aspirin 81 mg chewable tablet (Children's Aspirin) 81 mg PO DAILY Blood Clot Prevention/Tx 30 days #30 tabs 02/05/24
polyethylene glycol 400 0.25 % eye drops (Blink Tears) 1 drp ophthalmic (eye) QIDPRN PRN dry eye 02/05/24
Home Medication Changes
acetaminophen 325 mg tablet 650 mg (2 x 325 mg) PO Q4HPRN PRN mild pain/ fever>100.5F #120 tabs 02/05/24
Pending Results: No
[2024-02-05 15:12] VITALS: BP 144/78
--- NOTE | 2024-02-05 15:29 | CM ---
Patient has been medically cleared for discharge to home with outpatient PT/OT. Script provided. Family will transport home.
== END 2024-02-05 15:50 | disposition home or self-care (01) | DRG 38 ==
LOC: 2 NORTH 12:50
PROVIDERS: Nurse Practitioner; Student in an Organized Health Care Education/Training Program; Surgery Vascular Surgery; ADMITTING PHYSICIAN Internal Medicine; EMERGENCY PHYSICIAN Emergency Medicine; FAMILY PHYSICIAN Family Medicine
PROC: 03CK0ZZ Extirpation of Matter from Right Internal Carotid Artery, Open Approach (ICD-10-PCS; 2024-02-03)
PROC: 03UK0KZ Supplement Right Internal Carotid Artery with Nonautologous Tissue Substitute, Open Approach (ICD-10-PCS; 2024-02-03)
DX: I63.231 Cerebral infarction due to unspecified occlusion or stenosis of right carotid arteries (principal); I48.19 Other persistent atrial fibrillation; G83.24 Monoplegia of upper limb affecting left nondominant side; I10 Essential (primary) hypertension; R29.706 NIHSS score 6; R47.81 Slurred speech; R47.1 Dysarthria and anarthria; R29.810 Facial weakness; I25.10 Atherosclerotic heart disease of native coronary artery without angina pectoris; E78.5 Hyperlipidemia, unspecified; K21.9 Gastro-esophageal reflux disease without esophagitis; N40.0 Benign prostatic hyperplasia without lower urinary tract symptoms; G47.33 Obstructive sleep apnea (adult) (pediatric); H40.9 Unspecified glaucoma; Z79.01 Long term (current) use of anticoagulants; Z79.82 Long term (current) use of aspirin; Z79.899 Other long term (current) drug therapy; Z87.891 Personal history of nicotine dependence; Z86.73 Personal history of transient ischemic attack (TIA), and cerebral infarction without residual deficits; Z86.79 Personal history of other diseases of the circulatory system; Z95.5 Presence of coronary angioplasty implant and graft
CPT/HCPCS: 35301; 70450; 70496; 70498; 70551; 80048; 80053; 80061; 81003; 82607; 82728; 82746; 82962; 83036; 83735; 84443; 85025; 85027; 85610; 85730; 86850; 86900; 86901; 92526; 93005; 93306; 97116; 97162; 97164; 97167; 97530; 97535; 99285; Q9967

== ENCOUNTER 2024-02-13 08:51 | Outpatient (RCR) | payer MEDICARE, OTHER, SELFPAY | END 2024-02-13 23:59 | disposition home or self-care (01) | LOC: RST 08:51 | PROVIDERS: ATTENDING PHYSICIAN Family Medicine | DX: I69.392 Facial weakness following cerebral infarction (principal); I69.354 Hemiplegia and hemiparesis following cerebral infarction affecting left non-dominant side; I69.322 Dysarthria following cerebral infarction; I69.328 Other speech and language deficits following cerebral infarction; I69.391 Dysphagia following cerebral infarction; R13.12 Dysphagia, oropharyngeal phase; Z73.6 Limitation of activities due to disability; R26.89 Other abnormalities of gait and mobility | CPT/HCPCS: 92507; 92522; 92526; 92610; 97110; 97112; 97116; 97163; 97167; 97530; 97535 ==

== ENCOUNTER 2024-03-15 14:13 | Outpatient (RCR) | payer MEDICARE, OTHER, SELFPAY | END 2024-03-15 23:59 | disposition home or self-care (01) | LOC: RST 14:13 | PROVIDERS: ATTENDING PHYSICIAN Family Medicine | DX: I69.398 Other sequelae of cerebral infarction (principal); Z73.6 Limitation of activities due to disability; I69.328 Other speech and language deficits following cerebral infarction; R13.12 Dysphagia, oropharyngeal phase; I69.391 Dysphagia following cerebral infarction; R26.89 Other abnormalities of gait and mobility | CPT/HCPCS: 92507; 92526; 97110; 97112; 97116; 97530; 97535 ==

== ENCOUNTER → 2024-03-31 09:37 | Outpatient (REF) | payer MEDICARE, OTHER, SELFPAY ==
[2024-03-31 11:31] LABS: % Basophils 0.5 % (0-2); % Eosinophils 2.4 % (0-6); % Immature Granulocytes 0.3 % (0-0.5); % Lymphocytes 25.4 % (20.5-51.1); % Monocytes 8.5 % (1.7-9.3); % Neutrophils 62.9 % (42.2-75.2); Absolute Eosinophils 0.2 10^3/uL (0-0.7); Absolute Lymphocytes 1.6 10^3/uL (1.2-3.4); Absolute Monocytes 0.5 10^3/uL (0.1-0.6); Absolute Neutrophils 3.9 10^3/uL (1.4-6.5); Hematocrit 42.4 % (39.0-52.0); Hemoglobin 14.1 g/dL (13.0-18.0); Mean Corp Hgb Conc. 33.3 g/dL (33.0-37.0); Mean Corpuscular Hgb 30.1 pg (27.0-31.0); Mean Corpuscular Volume 90.6 fL (80.0-94.0); Mean Platelet Volume 10.7 fL (7.4-10.4); Nucleated Red Blood Cells % 0 % (-); Platelet Count 194 10^3/uL (130-400); Red Blood Cell Count 4.68 10^6/uL (4.70-6.10); Red Cell Dist. Width 13.8 % (11.5-14.5); White Blood Cell Count 6.1 10^3/uL (4.8-10.8)
[2024-03-31 12:09] LABS: ALT (SGPT) 25 U/L (0-50); AST (SGOT) 29 U/L (17-59); Albumin 4.5 g/dl (3.5-5.0); Alkaline Phosphatase 73 U/L (38-126); Blood Urea Nitrogen 18 mg/dl (9-20); Calcium 9.3 mg/dl (8.4-10.2); Carbon Dioxide 24 mmol/L (22-30); Chloride 105 mmol/L (98-107); Glucose 84 mg/dl (70-99); HDL Cholesterol 38 mg/dl; LDL Cholesterol, Calculated 55 mg/dl; Sodium 137 mmol/L (135-145); Total Bilirubin 0.7 mg/dl (0.2-1.3); Total Cholesterol 104 mg/dl (50-199); Total Protein 6.9 g/dl (6.3-8.2); Triglyceride 58 mg/dl (10-149); Very Low Density Lipoprotein 11 mg/dl (0-30); eGFR > 60.00
[2024-03-31 12:58] LABS: Glycohemoglobin (HgbA1c) 6.2 % (4.0-5.6)
== END ==
LOC: REG 09:37
PROVIDERS: ATTENDING PHYSICIAN Family Medicine
DX: R73.01 Impaired fasting glucose (principal); E78.5 Hyperlipidemia, unspecified; I10 Essential (primary) hypertension
CPT/HCPCS: 36415; 80053; 80061; 83036; 85025

== ENCOUNTER → 2024-04-05 13:47 | Outpatient (REF) | payer MEDICARE, OTHER, SELFPAY | LOC: RAD 13:47 | PROVIDERS: ATTENDING PHYSICIAN Surgery Vascular Surgery; FAMILY PHYSICIAN Family Medicine | DX: I65.23 Occlusion and stenosis of bilateral carotid arteries (principal) | CPT/HCPCS: 93880 ==

== ENCOUNTER 2024-04-16 13:05 | Outpatient (RCR) | payer MEDICARE, OTHER, SELFPAY | END 2024-04-16 23:59 | disposition home or self-care (01) | LOC: RST 13:05 | PROVIDERS: ATTENDING PHYSICIAN Family Medicine | DX: I69.398 Other sequelae of cerebral infarction (principal); Z73.6 Limitation of activities due to disability; I69.328 Other speech and language deficits following cerebral infarction; R13.12 Dysphagia, oropharyngeal phase; R26.89 Other abnormalities of gait and mobility; I69.391 Dysphagia following cerebral infarction | CPT/HCPCS: 92507; 92526; 97014; 97110; 97112; 97530; 97535 ==

== ENCOUNTER 2024-04-30 13:05 | Outpatient (RCR) | payer MEDICARE, OTHER, SELFPAY | END 2024-04-30 23:59 | disposition home or self-care (01) | LOC: RST 13:05 | PROVIDERS: ATTENDING PHYSICIAN Family Medicine | DX: I69.392 Facial weakness following cerebral infarction (principal); I69.354 Hemiplegia and hemiparesis following cerebral infarction affecting left non-dominant side; I69.319 Unspecified symptoms and signs involving cognitive functions following cerebral infarction; I69.322 Dysarthria following cerebral infarction; I69.391 Dysphagia following cerebral infarction; R13.10 Dysphagia, unspecified; R13.12 Dysphagia, oropharyngeal phase; Z73.6 Limitation of activities due to disability; I69.328 Other speech and language deficits following cerebral infarction | CPT/HCPCS: 97110; 97112; 97535 ==

== ENCOUNTER → 2024-06-17 09:05 | Outpatient (REF) | payer MEDICARE, OTHER, SELFPAY ==
[2024-06-17 10:56] LABS: Blood Urea Nitrogen 16 mg/dl (9-20); Calcium 9.2 mg/dl (8.4-10.2); Carbon Dioxide 29 mmol/L (22-30); Chloride 103 mmol/L (98-107); Glucose 96 mg/dl (70-99); Potassium 4.6 mmol/L (3.5-5.1); Sodium 142 mmol/L (135-145); eGFR > 60.00
== END ==
LOC: REG 09:05
PROVIDERS: ATTENDING PHYSICIAN Surgery Vascular Surgery; FAMILY PHYSICIAN Family Medicine
DX: I65.23 Occlusion and stenosis of bilateral carotid arteries (principal); I71.43 Infrarenal abdominal aortic aneurysm, without rupture
CPT/HCPCS: 36415; 80048

== ENCOUNTER → 2024-06-23 09:03 | Outpatient (REF) | payer MEDICARE, OTHER, SELFPAY | LOC: RAD 09:03 | PROVIDERS: ATTENDING PHYSICIAN Surgery Vascular Surgery | DX: I71.43 Infrarenal abdominal aortic aneurysm, without rupture (principal); I65.23 Occlusion and stenosis of bilateral carotid arteries | CPT/HCPCS: 74174; 93880; Q9967 ==

== ENCOUNTER 2024-07-16 15:27 | Outpatient (RCR) | payer MEDICARE, OTHER, SELFPAY | END 2024-07-16 23:59 | disposition home or self-care (01) | LOC: ROT 15:27 | PROVIDERS: Psychiatry & Neurology Neurology; ATTENDING PHYSICIAN Psychiatry & Neurology Neurology; FAMILY PHYSICIAN Family Medicine | DX: I69.318 Other symptoms and signs involving cognitive functions following cerebral infarction (principal); I69.328 Other speech and language deficits following cerebral infarction; I69.311 Memory deficit following cerebral infarction; I69.314 Frontal lobe and executive function deficit following cerebral infarction; Z73.6 Limitation of activities due to disability | CPT/HCPCS: 96125; 97129; 97130; 97167; 97530 ==

== ENCOUNTER 2024-08-17 13:48 | Outpatient (RCR) | payer MEDICARE, OTHER, SELFPAY | END 2024-08-17 23:59 | disposition home or self-care (01) | LOC: ROT 13:48 | PROVIDERS: ATTENDING PHYSICIAN Psychiatry & Neurology Neurology; FAMILY PHYSICIAN Family Medicine | DX: I69.318 Other symptoms and signs involving cognitive functions following cerebral infarction (principal); I69.328 Other speech and language deficits following cerebral infarction; I69.311 Memory deficit following cerebral infarction; I69.314 Frontal lobe and executive function deficit following cerebral infarction; R41.89 Other symptoms and signs involving cognitive functions and awareness; Z73.6 Limitation of activities due to disability | CPT/HCPCS: 97129; 97130; 97530; 97535; 97537 ==

== ENCOUNTER 2024-08-27 13:06 | Outpatient (RCR) | payer MEDICARE, OTHER, SELFPAY | END 2024-09-01 11:37 | disposition home or self-care (01) | LOC: ROT 13:06 | PROVIDERS: ATTENDING PHYSICIAN Psychiatry & Neurology Neurology; FAMILY PHYSICIAN Family Medicine | DX: I69.318 Other symptoms and signs involving cognitive functions following cerebral infarction (principal); I69.328 Other speech and language deficits following cerebral infarction; I69.311 Memory deficit following cerebral infarction; R41.89 Other symptoms and signs involving cognitive functions and awareness; I69.314 Frontal lobe and executive function deficit following cerebral infarction; Z73.6 Limitation of activities due to disability; R41.841 Cognitive communication deficit | CPT/HCPCS: 97129; 97130; 97530; 97535 ==

== ENCOUNTER → 2024-10-18 10:20 | Outpatient (REF) | payer MEDICARE, OTHER, SELFPAY ==
[2024-10-18 11:28] LABS: % Basophils 0.6 % (0-2); % Eosinophils 4.6 % (0-6); % Immature Granulocytes 0.2 % (0-0.5); % Lymphocytes 28.9 % (20.5-51.1); % Monocytes 9.1 % (1.7-9.3); % Neutrophils 56.6 % (42.2-75.2); Absolute Eosinophils 0.3 10^3/uL (0-0.7); Absolute Lymphocytes 1.8 10^3/uL (1.2-3.4); Absolute Monocytes 0.6 10^3/uL (0.1-0.6); Absolute Neutrophils 3.6 10^3/uL (1.4-6.5); Hematocrit 46.1 % (39.0-52.0); Hemoglobin 14.5 g/dL (13.0-18.0); Mean Corp Hgb Conc. 31.5 g/dL (33.0-37.0); Mean Corpuscular Volume 95.2 fL (80.0-94.0); Mean Platelet Volume 10.9 fL (7.4-10.4); Nucleated Red Blood Cells % 0 % (-); Platelet Count 163 10^3/uL (130-400); Red Blood Cell Count 4.84 10^6/uL (4.70-6.10); Red Cell Dist. Width 14.3 % (11.5-14.5); White Blood Cell Count 6.3 10^3/uL (4.8-10.8)
[2024-10-18 12:06] LABS: ALT (SGPT) 23 U/L (0-50); AST (SGOT) 25 U/L (17-59); Albumin 4.5 g/dl (3.5-5.0); Alkaline Phosphatase 68 U/L (38-126); Blood Urea Nitrogen 16 mg/dl (9-20); Calcium 9.6 mg/dl (8.4-10.2); Carbon Dioxide 31 mmol/L (22-30); Chloride 101 mmol/L (98-107); Glucose 92 mg/dl (70-99); HDL Cholesterol 35 mg/dl; LDL Cholesterol, Calculated 51 mg/dl; Sodium 139 mmol/L (135-145); Total Bilirubin 0.9 mg/dl (0.2-1.3); Total Cholesterol 100 mg/dl (50-199); Total Protein 6.7 g/dl (6.3-8.2); Triglyceride 72 mg/dl (10-149); Very Low Density Lipoprotein 14 mg/dl (0-30); eGFR > 60.00
[2024-10-18 12:35] LABS: TSH 2.28 uIU/ml (0.47-4.68)
[2024-10-18 13:23] LABS: Glycohemoglobin (HgbA1c) 6.3 % (4.0-5.6)
== END ==
LOC: REG 10:20
PROVIDERS: ATTENDING PHYSICIAN Family Medicine
DX: I10 Essential (primary) hypertension (principal); I48.0 Paroxysmal atrial fibrillation; I25.10 Atherosclerotic heart disease of native coronary artery without angina pectoris; I69.30 Unspecified sequelae of cerebral infarction; E78.5 Hyperlipidemia, unspecified; R73.03 Prediabetes; J30.0 Vasomotor rhinitis; Z79.01 Long term (current) use of anticoagulants; G25.0 Essential tremor; E66.09 Other obesity due to excess calories; Z68.30 Body mass index [BMI] 30.0-30.9, adult; E66.811 Obesity, class 1; Z71.3 Dietary counseling and surveillance
CPT/HCPCS: 36415; 80053; 80061; 83036; 84443; 85025

== ENCOUNTER → 2024-12-20 09:46 | Outpatient (REF) | payer MEDICARE, OTHER, SELFPAY ==
[2024-12-20 11:26] LABS: PSA, Total - Diagnostic 1.67 ng/ml (0.0-4.0)
== END ==
LOC: REG 09:46
PROVIDERS: ATTENDING PHYSICIAN Surgery; FAMILY PHYSICIAN Family Medicine; REFERRING PHYSICIAN Surgery Vascular Surgery
DX: Z12.5 Encounter for screening for malignant neoplasm of prostate (principal); N40.0 Benign prostatic hyperplasia without lower urinary tract symptoms
CPT/HCPCS: 36415; 84153

== ENCOUNTER → 2025-01-05 12:50 | Outpatient (REF) | payer MEDICARE, OTHER, SELFPAY | LOC: RAD 12:50 | PROVIDERS: ATTENDING PHYSICIAN Surgery Vascular Surgery; FAMILY PHYSICIAN Family Medicine | DX: I65.22 Occlusion and stenosis of left carotid artery (principal); I71.43 Infrarenal abdominal aortic aneurysm, without rupture | CPT/HCPCS: 74174; 93880; Q9967 ==

== ENCOUNTER → 2025-04-28 08:11 | Outpatient (REF) | payer MEDICARE, OTHER, SELFPAY ==
[2025-04-28 09:27] LABS: ALT (SGPT) 24 U/L (0-50); AST (SGOT) 23 U/L (17-59); Albumin 4.1 g/dl (3.5-5.0); Alkaline Phosphatase 61 U/L (38-126); Blood Urea Nitrogen 13 mg/dl (9-20); Calcium 8.7 mg/dl (8.4-10.2); Carbon Dioxide 28 mmol/L (22-30); Chloride 107 mmol/L (98-107); Glucose 100 mg/dl (70-99); Glycohemoglobin (HgbA1c) 6.3 % (4.0-5.6); HDL Cholesterol 35 mg/dl; LDL Cholesterol, Calculated 52 mg/dl; Potassium 4.5 mmol/L (3.5-5.1); Sodium 140 mmol/L (135-145); Total Protein 6.4 g/dl (6.3-8.2); Very Low Density Lipoprotein 10 mg/dl (0-30); eGFR > 60.00
== END ==
LOC: REG 08:11
PROVIDERS: ATTENDING PHYSICIAN Family Medicine
DX: I10 Essential (primary) hypertension (principal); I48.0 Paroxysmal atrial fibrillation; I25.10 Atherosclerotic heart disease of native coronary artery without angina pectoris; I69.30 Unspecified sequelae of cerebral infarction; E78.5 Hyperlipidemia, unspecified; R73.03 Prediabetes; Z79.01 Long term (current) use of anticoagulants; G25.0 Essential tremor; G47.33 Obstructive sleep apnea (adult) (pediatric)
CPT/HCPCS: 36415; 80053; 80061; 83036

== ENCOUNTER → 2025-06-20 08:13 | Outpatient (REF) | payer MEDICARE, OTHER, SELFPAY ==
[2025-06-20 11:29] LABS: Blood Urea Nitrogen 14 mg/dl (9-20); Calcium 9.1 mg/dl (8.4-10.2); Carbon Dioxide 30 mmol/L (22-30); Chloride 103 mmol/L (98-107); Glucose 95 mg/dl (70-99); Potassium 4.8 mmol/L (3.5-5.1); Sodium 139 mmol/L (135-145); eGFR > 60.00
== END ==
LOC: RAD 08:13
PROVIDERS: ATTENDING PHYSICIAN Surgery Vascular Surgery; FAMILY PHYSICIAN Family Medicine
DX: I71.43 Infrarenal abdominal aortic aneurysm, without rupture (principal); I65.22 Occlusion and stenosis of left carotid artery
CPT/HCPCS: 36415; 74174; 80048; 93880; Q9967